=== PATIENT | male | born 1960 | race Caucasian/White ===

== ENCOUNTER 2020-05-01 11:36 | Observation (INO) ==
[2020-05-01] MEDS ORDERED: FUROSEMIDE 40 MG/4 ML VIAL IV STA (12:16)
--- NOTE | 2020-05-01 12:51 | Emergency Department Note ---
Impression & Plan CHF (congestive heart failure), New onset type 2 diabetes mellitus, HTN (hypertension) ED Provider Note NAME: RASHMI LUNA AGE: 59 SEX: M : 1960 ARRIVES VIA: Walk-In INFORMANT: Patient, , PCP records reviewed ED PROVIDER(S): Marcelo Zaragoza MD CHIEF COMPLAINT: Shortness of breath HPI: This 59-year-old male who went to his primary care physician's office yesterday over concerns that he was extremely short of breath. The patient feels he is filling up with fluid. He reports he can only sit upright to catch his breath. He reports he has never seen a doctor before until yesterday when he went to his [facility] primary care physician. Laboratory work was obtained there and the patient was sent in for an elevated D-dimer as well as BNP. Patient reports any type of exertion makes his shortness of breath worse. He reports rest makes it better. He has not taken any medications and does not take any medications. ROS: See above HPI for pertinent positives & negatives. A total of 10 systems reviewed and were otherwise negative. PAST MEDICAL HISTORY: See Below PAST SURGICAL HISTORY: See Below FAMILY HISTORY: See Below SOCIAL HISTORY: See Below HOME MEDICATIONS: See Below ALLERGIES: See Below VITALS: See Below PHYSICAL EXAMINATION: VITAL SIGNS - Vital signs and nursing notes were reviewed. GENERAL - 59-year-old male appearing stated age who is in moderate distress. Appears winded on physical examination. SKIN - Without rashes. HEAD - NC/AT. EYES - PERRL with EOMI bilaterally. Sclera anicteric. Palpebral conjunctiva pink and moist with no injection noted. EARS - No deformities of external structures noted on gross examination bilaterally. NOSE - Midline and without cyanosis. No epistaxis or purulent drainage noted. Septum midline without deviation or septal hematoma noted. MOUTH/OROPHARYNX - Without perioral cyanosis. Buccal mucosa pink and moist and without leukoplakia. Tongue midline with equal elevation of palate bilaterally. No tonsillar hypertrophy, erythema, or exudates noted. dentition noted. NECK - Neck with FROM. Supple to palpation. lymphadenopathy noted. No nuchal rigidity. LUNGS - Chest wall symmetric without accessory muscle use, intercostals retractions, or central cyanosis. Normal vesicular breath sounds CTA B/L. No wheezes, rales, or rhonchi appreciated. CARDIAC - RRR with S1/S2. No murmur, rubs, or gallops appreciated. ABDOMEN - Abdominal contour without pulsations or visible masses. BS normoactive all four quadrants. No tenderness, palpable masses, hepatosplenomegaly, or ascites noted. EXTREMITIES - +2 pitting edema bilaterally NEUROLOGIC - Cranial nerves II through XII grossly intact. Sensory intact to light touch throughout. Patellar reflexes +2/4. PSYCH - A&Ox3 and cooperates fully with examiner. Pt is very pleasant and interacts well with examiner. MEDICAL DECISION MAKING: Patient was seen and evaluated as above in room A11B. Review was performed of nursing notes and vital signs. I did review pertinent previous visits and patient history. After obtaining a thorough history and physical examination the above work up was performed. This 59-year-old male who presents to the emergency department and what appears to be acute congestive heart failure. This is evident on his chest x-ray as well as laboratory work which shows an elevation in his BNP. Because patient had an outpatient positive D-dimer he was sent for a CAT scan of the chest. This did not show any evidence of PE. Patient was started on IV Lasix here in the emergency department. Because of the new diagnosis I did discuss the case with the hospitalist service who did agree to meet the patient. An order was placed for continuous cardiac monitoring. The monitor shows a rate of 122 with Sinus tachycardia rhythm. The patient was evaluated during a period of high volume and high acuity during the global COVID-19 pandemic, and that diagnosis was suspected/considered upon their initial presentation. Their evaluation, treatment and testing was consistent with current guidelines for patients who present with complaints or symptoms that may be related to COVID-19. Patient was seen while provider was wearing PPE. Triage Nursing notes reviewed. Prior medical records reviewed Vital Signs: reviewed and remarkable for no significant abnormalities Differential diagnosis: Cardiac ischemia, aortic dissection, pulmonary embolism, pneumothorax, pneumonia, pericarditis, myocarditis, esophageal rupture, GERD, cholecystitis, pancreatitis, musculoskeletal, as well as other pathologies. ER treatment provided: See below Diagnostics interpreted by me: ECG: EKG shows a sinus tachycardia with occasional PVC no ST elevation or depression no previous EKG available. QTC is 482 ventricular rate is 108 Laboratory studies: As stated above and show below. Imaging studies: [facility], [place] [phone] XRay Report Patient: RASHMI LUNA Admit Date: 05/01/20 MR#: [id number] Address1: [address] [facility] [facility] [address] Acct ID:[id number] Address2: Date: 1960 [facility] Zip: [place] [address] Age: 59 Location: ED Sex: M Room/Bed: Att Phy: Diagnosis: ABNORMAL LABS, FLUID RETENTION [place] Phy: PCP,NO Service Date: 05/01/20 Fam Phy: Interpreting Phy: Wesley David Admit Phy: Ordering Phy: Marcelo Zaragoza MD cc: ~ XR chest 1V portable HISTORY: 59 years-old Male Chest Pain acute atypical chest pain COMPARISON: None TECHNIQUE: Portable AP view of the chest FINDINGS: Cardiomegaly. Pulmonary vascular congestion with mild interstitial coarsening. Small pleural effusions with mild bibasilar opacities. No pneumothorax. Bones appear grossly intact. IMPRESSION: 1. Cardiomegaly with pulmonary vascular congestion. 2. Small pleural effusions with mild bibasilar opacities suggestive of atelectasis versus pneumonitis. ACT 112: Negative or not required by law. The above report was generated using voice recognition software. It may contain grammatical, syntax or spelling errors. Electronically signed by: Claus David M.D. 05/01/2020 1:03 PM Dictated: 05/01/20 1302 Transcribed: 05/01/20 1302 [facility], [phone] CT Scan Report Patient: RASHMI LUNAAdmit Date: 05/01/20MR#: [id number]: [address] [facility]:[id number]: Date: [address] [place] [address] Zip: [place] [address]Zgb: 59Location: EDSex: MRoom/Bed:Att Phy:Diagnosis: ABNORMAL LABS, FLUID RETENTIONPri Phy: PCP,NOService Date: 05/01/20Fam Phy:Interpreting Phy: Wesley DavidAdmit Phy: Ordering Phy: Marcelo Zaragoza MD cc: ~ CT angio chest PE protocol CT DOSE: 1931.48 mGycm HISTORY: 59 years-old Male with PE. Acute shortness of breath with chest pain TECHNIQUE: Multiple CTA images of the chest were obtained after the intravenous administration of 119 ml Optiray 320. Coronal and sagittal MIPS were obtained from the axial data set and were submitted for review. All measurements were obtained according to NASCET criteria. A dose lowering technique was utilized adhering to the principles of ALARA. COMPARISON: CT abdomen and pelvis of same day FINDINGS: CTA: Moderate cardiomegaly. No pericardial effusion. Extensive coronary artery calcifications. No thoracic aortic aneurysm or dissection. The opacified pulmonary artery is unremarkable without evidence of pulmonary emboli. Subsegmental branches are not well evaluated secondary to contrast bolus during. CT CHEST: Enlarged heterogeneous thyroid. No adenopathy. Small left and moderate right pleural effusions. No pneumothorax. Intralobular septal thickening. Respiratory motion artifact limits evaluation of the lung parenchyma. Bibasilar consolidation, right greater than left. Central airways are patent. No pneumoperitoneum. Small volume of upper abdominal ascites. Generalized body wall edema. No acute fracture or suspicious bone lesion. IMPRESSION: 1. Cardiomegaly with pulmonary edema, small left and moderate right pleural effusions with small volume of abdominal ascites. 2. No pulmonary emboli. 3. Asymmetric right lung base consolidation suggests atelectasis versus pneum onia. 4. No adenopathy. ACT 112: Negative or not required by law. The above report was generated using voice recognition software. It may contain grammatical, syntax or spelling errors. Electronically signed by: Claus David M.D. 05/01/2020 3:01 PM Dictated: 05/01/20 1452Transcribed: 05/01/20 [facility], [phone] CT Scan Report Patient: RASHMI LUNAAdmit Date: 05/01/20#: [id number]: [address] [facility] ID:[id number]: [facility] Zip: [place] [address]Bao: 59Location: EDSex: MRoom/Bed:Att Phy:Diagnosis: ABNORMAL LABS, FLUID RETENTIONPri Phy: Seferino Quinonez, MDService Date: 05/01/20Fam Phy:Interpreting Phy: Darnell Acosta MDAdmit Phy: Ordering Phy: Marcelo Zaragoza MD cc: ~ CT OF THE ABDOMEN AND PELVIS WITH CONTRAST CLINICAL HISTORY: Abdominal distention. COMPARISON STUDY: None. TECHNIQUE: Following IV administration of 119 mL of Optiray-320, axial images of the abdomen and pelvis were obtained from the lung bases to the proximal femurs. Images were reviewed in the axial, sagittal, and coronal planes. IV contrast was administered without complication. Automated exposure control was utilized for the study. A dose lowering technique was utilized adhering to the principles of ALARA. FINDINGS: Please note that the chest CT will be reported separately. Moderate cardiomegaly with bilateral pleural effusions, right larger left, are better depicted on that exam. A small amount of perihepatic ascites is noted. There is trace perisplenic ascites. A small amount of ascites within the remainder of the abdomen is noted. There is body wall edema. Evaluation of the abdomen and pelvis is compromised by body wall contacting the gantry. There is colonic and moderate artifact. No hepatic lesions are identified. There is no biliary or pancreatic ductal dilatation. There is a splenule. The adrenal glands, kidneys and pancreas are grossly unremarkable. There is no hydronephrosis. No peripancreatic or pericholecystic infiltration is present. The appendix is normal. There is no evidence for a bowel obstruction. Mild bladder wall thickening is noted. Fat-containing bilateral inguinal hernias are present. There is a slightly enlarged left external iliac lymph node which measures 1 cm short axis diameter. Additional prominent pelvic lymph nodes are present.. No pneumatosis, free air or portal venous gas is present. Note is made of colonic diverticulosis without evidence for acute diverticulitis. IMPRESSION: 1. Evidence for volume overload with bilateral pleural effusions, body wall edema and a small amount of ascites. 2. Again compromised by artifact, as described above. No bowel obstruction. Normal appendix. 3. Colonic diverticulosis without evidence for acute diverticulitis. 4. Bladder wall thickening which could be correlated with urinalysis. 5. Slightly enlarged left external iliac lymph node. Several additional prominent pelvic lymph nodes. These nodes are indeterminate although probably benign. ACT 112: Negative or not required by law. Electronically signed by: Darnell Acosta M.D. 05/01/2020 3:15 PM Dictated: 05/01/20 1457Transcribed: 05/01/20 1457 Consultation(s): [none] ED COURSE: Procedures: [none] [PDMP:reviewed and no issues] [Critical Care:] [None] Past Med/Surg History Social History Smoking Status: Never smoker Second Hand Exposure: No; Do You Dip or Chew Tobacco: No; Hx Alcohol Use: Yes Hx Substance Use: No Preferred Language: Ivorian Communication Ability: Effective Supervisor Network Control Operators Required: No Beliefs That Will Affect Care: None Current Living Situation: Spouse Feels Safe at Home: Yes Safety Concerns: Feels Safe At This Time Assistive Devices: None Assistive Devices Comment: glasses for driving only Allergies Allergies Allergy/AdvReac Type Severity Reaction Status Date / Time No Known Allergies Allergy Unverified 05/01/20 12:47 Home Meds Home Medications Medication Instructions Recorded Confirmed One-A-Day Men's 50 Plus 1 tab PO QAM 05/01/20 05/01/20 Previous Rx's Medication Instructions Recorded cephalexin 500 mg PO Q6H #20 cap 05/05/20 furosemide 40 mg PO BID17 #60 tab 05/05/20 lisinopril 20 mg PO QAM #30 tab 05/05/20 metoprolol succinate 25 mg PO QAM #30 tab 05/05/20 potassium chloride 20 meq PO DAILY #30 tab 05/05/20 Results & Data (ED) Vital Signs Vital Signs - 24 hr 05/01/20 11:38 05/01/20 12:47 Temperature 36.4 C L Temperature Source Temporal Artery Scan Pulse Rate 122 H Respiratory Rate 22 Respiratory Effort / Characteristics Non-Labored Spontaneous Respiratory Depth Normal Blood Pressure 155/98 H Blood Pressure Mean 117 Pulse Oximetry 91 95 Oxygen Delivery Method Room Air Room Air Sepsis Recent Fever Within 48 Hours No Sepsis New/Unexplained Change in Mental Status N/A Sepsis Action Taken by Nursing No Action Required Laboratory Data Result diagrams: 05/05/20 06:44 05/05/20 08:07 Lab Results 05/01/20 05/01/20 05/01/20 Range/Units 12:30 12:30 12:30 WBC 7.57 (4.8-10.8) K/uL RBC 5.56 (4.7-6.1) M/uL Hgb 15.0 (14.0-18.0) g/dL Hct 48.0 (42-52) % MCV 86.3 (80-100) fL MCH 27.0 (25-34) pg MCHC 31.3 L (32-36) g/dL RDW Std Deviation 47.9 H (36.4-46.3) fL RDW Coeff of Abhijit 15.3 H (11.5-14.5) % Plt Count 204 (130-400) K/uL MPV 10.8 H (7.4-10.4) fL Immature Gran % (Auto) 0.1 % Neut % (Auto) 72.7 % Lymph % (Auto) 15.3 % Sharp % (Auto) 10.3 % Eos % (Auto) 1.3 % Baso % (Auto) 0.3 % Neut # (Auto) 5.50 (1.4-6.5) K/uL Lymph # (Auto) 1.16 L (1.2-3.4) K/uL Sharp # (Auto) 0.78 H (0.11-0.59) K/uL Eos # (Auto) 0.10 (0-0.5) K/uL Baso # (Auto) 0.02 (0-0.2) K/uL Immature Gran # (Auto) 0.01 (0.00-0.02) K/uL PT 13.5 H (9.0-12.0) Seconds INR 1.4 H (0.9-1.1) APTT 24.8 (21.0-31.0) Seconds PTT Ratio 0.9 Sodium 142 (136-145) mmol/L Potassium 3.9 (3.5-5.1) mmol/L Chloride 110 H (98-107) mmol/L Carbon Dioxide 30 (21-32) mmol/L Anion Gap 2.0 L (3-11) BUN 23 H (7-18) mg/dl Creatinine 0.93 (0.6-1.4) mg/dl Est Cr Clr Drug Dosing 132.7 ml/min Est GFR ( Amer) 104.5 Est GFR (Non-Af Amer) 90.2 BUN/Creatinine Ratio 24.5 H (10-20) Glucose 116 H (70-99) mg/dl Calcium 9.0 (8.5-10.1) mg/dl Total Bilirubin 0.7 (0.2-1) mg/dl AST 22 (15-37) U/L ALT 24 (12-78) U/L Alkaline Phosphatase 57 (45-117) U/L Total Creatine Kinase 105 (39-308) U/L CK-MB (CK-2) 2.2 (0.5-3.6) ng/ml CK/CKMB % Calc 2.1 (0-3.0) Troponin I < 0.015 (0-0.045) ng/ml NT-Pro-B Natriuret Pep 2163 H (0-900) pg/ml Total Protein 8.0 (6.4-8.2) gm/dl Albumin 3.7 (3.4-5.0) gm/dl Globulin 4.3 H (2.5-4.0) gm/dl Albumin/Globulin Ratio 0.9 (0.9-2) Lipase 118 (73-393) U/L COVID-19 Eval Order SARS-CoV-2 (PCR) (Negative) Influenza Type A (PCR) (Neg) Influenza Type B (PCR) (Neg) RSV (RT-PCR) (Neg) 05/01/20 05/01/20 Range/Units 12:34 12:34 WBC (4.8-10.8) K/uL RBC (4.7-6.1) M/uL Hgb (14.0-18.0) g/dL Hct (42-52) % MCV (80-100) fL MCH (25-34) pg MCHC (32-36) g/dL RDW Std Deviation (36.4-46.3) fL RDW Coeff of Abhijit (11.5-14.5) % Plt Count (130-400) K/uL MPV (7.4-10.4) fL Immature Gran % (Auto) % Neut % (Auto) % Lymph % (Auto) % Sharp % (Auto) % Eos % (Auto) % Baso % (Auto) % Neut # (Auto) (1.4-6.5) K/uL Lymph # (Auto) (1.2-3.4) K/uL Sharp # (Auto) (0.11-0.59) K/uL Eos # (Auto) (0-0.5) K/uL Baso # (Auto) (0-0.2) K/uL Immature Gran # (Auto) (0.00-0.02) K/uL PT (9.0-12.0) Seconds INR (0.9-1.1) APTT (21.0-31.0) Seconds PTT Ratio Sodium (136-145) mmol/L Potassium (3.5-5.1) mmol/L Chloride (98-107) mmol/L Carbon Dioxide (21-32) mmol/L Anion Gap (3-11) BUN (7-18) mg/dl Creatinine (0.6-1.4) mg/dl Est Cr Clr Drug Dosing ml/min Est GFR ( Amer) Est GFR (Non-Af Amer) BUN/Creatinine Ratio (10-20) Glucose (70-99) mg/dl Calcium (8.5-10.1) mg/dl Total Bilirubin (0.2-1) mg/dl AST (15-37) U/L ALT (12-78) U/L Alkaline Phosphatase (45-117) U/L Total Creatine Kinase (39-308) U/L CK-MB (CK-2) (0.5-3.6) ng/ml CK/CKMB % Calc (0-3.0) Troponin I (0-0.045) ng/ml NT-Pro-B Natriuret Pep (0-900) pg/ml Total Protein (6.4-8.2) gm/dl Albumin (3.4-5.0) gm/dl Globulin (2.5-4.0) gm/dl Albumin/Globulin Ratio (0.9-2) Lipase (73-393) U/L COVID-19 Eval Order [facility]Rsv at [facility] SARS-CoV-2 (PCR) NEGATIVE (Negative) Influenza Type A (PCR) Negative (Neg) Influenza Type B (PCR) Negative (Neg) RSV (RT-PCR) Negative (Neg) Administered Medications Discontinued Medications Acetaminophen (Acetaminophen 325 Mg Tab) 650 mg PO Q4H PRN PRN Reason: Moderate Pain Stop: 05/31/20 17:18 Last Admin: 05/02/20 19:52 Dose: 650 mg Documented by: [id number] Furosemide (Furosemide 40 Mg/4 Ml Vial) 40 mg IV NOW STA Stop: 05/01/20 12:17 Last Admin: 05/01/20 12:48 Dose: 40 mg Documented by: [id number] Heparin Sodium (Porcine) (Heparin Sod 5,000 Unit/0.5 Ml Vial) 5,000 units SQ Q8 COOPER Stop: 05/31/20 19:14 Last Admin: 05/05/20 13:46 Dose: 5,000 units Documented by: [id number] Admin: 05/05/20 06:13 Dose: 5,000 units Documented by: [id number] Admin: 05/04/20 22:21 Dose: 5,000 units Documented by: [id number] Admin: 05/04/20 15:13 Dose: Not Given Documented by: [id number] Admin: 05/04/20 05:07 Dose: 5,000 units Documented by: [id number] Admin: 05/03/20 22:22 Dose: 5,000 units Documented by: [id number] Admin: 05/03/20 12:43 Dose: Not Given Documented by: [id number] Admin: 05/03/20 05:38 Dose: 5,000 units Documented by: [id number] Admin: 05/02/20 21:17 Dose: 5,000 units Documented by: [id number] Admin: 05/02/20 14:13 Dose: 5,000 units Documented by: [id number] Admin: 05/02/20 05:33 Dose: 5,000 units Documented by: [id number] Admin: 05/02/20 01:23 Dose: Not Given Documented by: [id number] Admin: 05/01/20 21:06 Dose: 5,000 units Documented by: [id number] Cefazolin Sodium (Ancef 2000mg) 2,000 mg in 15 mls @ 3.75 mls/min IV Q8H COOPER Stop: 05/08/20 20:59 Last Admin: 05/05/20 13:46 Dose: 3.75 mls/min Documented by: [id number] Admin: 05/05/20 06:13 Dose: 3.75 mls/min Documented by: [id number] Admin: 05/04/20 20:22 Dose: 3.75 mls/min Documented by: [id number] Admin: 05/04/20 11:55 Dose: 3.75 mls/min Documented by: [id number] Admin: 05/04/20 05:07 Dose: 3.75 mls/min Documented by: [id number] Admin: 05/03/20 20:20 Dose: 3.75 mls/min Documented by: [id number] Admin: 05/03/20 12:42 Dose: 3.75 mls/min Documented by: [id number] Admin: 05/03/20 05:36 Dose: 3.75 mls/min Documented by: [id number] Admin: 05/02/20 21:14 Dose: 3.75 mls/min Documented by: [id number] Admin: 05/02/20 12:59 Dose: 3.75 mls/min Documented by: [id number] Admin: 05/02/20 05:32 Dose: 3.75 mls/min Documented by: [id number] Admin: 05/01/20 21:06 Dose: 3.75 mls/min Documented by: [id number] Furosemide 40 mg/ Syringe 4 mls @ 4 mls/min IV Q12H COOPER Stop: 06/01/20 05:59 Last Admin: 05/05/20 06:13 Dose: 4 mls/min Documented by: [id number] Admin: 05/04/20 18:02 Dose: 4 mls/min Documented by: [id number] Admin: 05/04/20 05:07 Dose: 4 mls/min Documented by: [id number] Admin: 05/03/20 18:06 Dose: 4 mls/min Documented by: [id number] Admin: 05/03/20 05:37 Dose: 4 mls/min Documented by: [id number] Admin: 05/02/20 17:38 Dose: 4 mls/min Documented by: [id number] Admin: 05/02/20 05:31 Dose: 4 mls/min Documented by: [id number] Insulin Aspart (Insulin Aspart 100 Units/Ml 3 Ml Pen) 0 units SC ACHS COOPER Stop: 05/31/20 17:18 Last Admin: 05/05/20 11:25 Dose: Not Given Documented by: [id number] Cosigned by: [id number] Admin: 05/05/20 08:29 Dose: Not Given Documented by: [id number] Cosigned by: [id number] Admin: 05/04/20 21:15 Dose: Not Given Documented by: [id number] Cosigned by: [id number] Admin: 05/04/20 16:42 Dose: Not Given Documented by: [id number] Cosigned by: [id number] Admin: 05/04/20 12:19 Dose: Not Given Documented by: [id number] Cosigned by: [id number] Admin: 05/04/20 08:14 Dose: Not Given Documented by: [id number] Admin: 05/03/20 20:26 Dose: Not Given Documented by: [id number] Cosigned by: [id number] Admin: 05/03/20 16:55 Dose: Not Given Documented by: [id number] Admin: 05/03/20 11:59 Dose: Not Given Documented by: [id number] Admin: 05/03/20 08:01 Dose: Not Given Documented by: [id number] Cosigned by: [id number] Admin: 05/02/20 21:17 Dose: Not Given Documented by: [id number] Cosigned by: [id number] Admin: 05/02/20 16:29 Dose: Not Given Documented by: [id number] Cosigned by: [id number] Admin: 05/02/20 12:36 Dose: Not Given Documented by: [id number] Cosigned by: [id number] Admin: 05/02/20 09:30 Dose: Not Given Documented by: [id number] Cosigned by: [id number] Admin: 05/01/20 21:05 Dose: Not Given Documented by: [id number] Cosigned by: [id number] Admin: 05/01/20 17:56 Dose: Not Given Documented by: [id number] Cosigned by: [id number] Ioversol (Optiray 320 125ml) 119 ml IV ONCE ONE Stop: 05/01/20 14:45 Last Admin: 05/01/20 14:44 Dose: 119 ml Documented by: [id number] Lisinopril (L[facility]opril 10 Mg Tab) [facility] Stop: 06/02/20 11:59 Last Admin: 05/04/20 08:15 Dose: 10 mg Documented by: [id number] Admin: 05/03/20 12:42 Dose: 10 mg Documented by: [id number] Lisinopril (Lisinopril 20 Mg Tab) [facility] Stop: 06/04/20 08:59 Last Admin: 05/05/20 08:20 Dose: 20 mg Documented by: [id number] Metoprolol Succinate (Metoprolol Succ 25mg Ext Rel Tab) [facility] Stop: 06/03/20 08:59 Last Admin: 05/05/20 08:20 Dose: 25 mg Documented by: [id number] Admin: 05/04/20 08:15 Dose: 25 mg Documented by: [id number] Multivitamins/Minerals (Cerovite Adv Formula Tab) 1 tab PO QAM [facility] Stop: 06/01/20 08:59 Last Admin: 05/05/20 08:19 Dose: 1 tab Documented by: [id number] Admin: 05/04/20 08:15 Dose: 1 tab Documented by: [id number] Admin: 05/03/20 08:23 Dose: 1 tab Documented by: [id number] Admin: 05/02/20 08:23 Dose: 1 tab Documented by: [id number] Nitroglycerin (Nitroglycerin 2% Ointment 30gm Tube) 0.5 inch EXT Q6H [facility] Stop: 05/31/20 20:59 Last Admin: 05/02/20 08:23 Dose: 0.5 inch Documented by: [id number] Admin: 05/02/20 03:34 Dose: 0.5 inch Documented by: [id number] Admin: 05/01/20 22:16 Dose: 0.5 inch Documented by: [id number] Discharge Plan Visit Data Chief Complaint: Abnormal Labs/Diagnostic Testing Stated Complaint: ABNORMAL LABS, FLUID RETENTION ED Provider: Marcelo Zaragoza Discharge Problem: CHF (congestive heart failure), New onset type 2 diabetes mellitus, HTN (hypertension) Patient Disposition: Admitted As Inpatient Discharge Instructions Interventions: ED Discharge Assessment Last Done: 05/01/20 16:57 Discharge Problem: CHF (congestive heart failure) Qualifiers: Heart failure type: unspecified Heart failure chronicity: unspecified Qualified Code(s): I50.9 - Heart failure, unspecified HTN (hypertension) Qualifiers: Hypertension type: unspecified Qualified Code(s): I10 - Essential (primary) hypertension
[2020-05-01 12:53] LABS: Basophils # (auto) 0.02 K/uL (0-0.2); Basophils % (auto) 0.3 %; Eosinophils % (auto) 1.3 %; Immature Granulocytes # (auto) 0.01 K/uL (0.00-0.02); Immature Granulocytes % (auto) 0.1 %; Lymphocytes # (auto) 1.16 K/uL (1.2-3.4); Lymphocytes % (auto) 15.3 %; Mean Corpuscular Hgb Conc 31.3 g/dL (32-36); Mean Corpuscular Volume 86.3 fL (80-100); Mean Platelet Volume 10.8 fL (7.4-10.4); Monocytes # (auto) 0.78 K/uL (0.11-0.59); Monocytes % (auto) 10.3 %; Neutrophils % (auto) 72.7 %; Platelet Count 204 K/uL (130-400); RDW Coefficient of Variation 15.3 % (11.5-14.5); RDW Standard Deviation 47.9 fL (36.4-46.3); Red Blood Count 5.56 M/uL (4.7-6.1); White Blood Count 7.57 K/uL (4.8-10.8)
[2020-05-01 12:54] LABS: INR 1.4 (0.9-1.1); Partial Thromboplastin Ratio 0.9; Partial Thromboplastin Time 24.8 Seconds (21.0-31.0); Prothrombin Time 13.5 Seconds (9.0-12.0)
[2020-05-01 12:59] LABS: Alanine Aminotransferase 24 U/L (12-78); Albumin Level 3.7 gm/dl (3.4-5.0); Aspartate Aminotransferase 22 U/L (15-37); BUN Creatinine Ratio 24.5 (10-20); Blood Urea Nitrogen 23 mg/dl (7-18); Carbon Dioxide 30 mmol/L (21-32); Chloride 110 mmol/L (98-107); Creatinine Clr Calc Pharmacy 132.7 ml/min; Est GFR (African American) 104.5; Est GFR (Non-African American) 90.2; Glucose 116 mg/dl (70-99); Lipase 118 U/L (73-393); Potassium 3.9 mmol/L (3.5-5.1); Sodium 142 mmol/L (136-145)
--- NOTE | 2020-05-01 13:04 | XRay Report ---
XR chest 1V portable HISTORY: 59 years-old Male Chest Pain acute atypical chest pain COMPARISON: None TECHNIQUE: Portable AP view of the chest FINDINGS: Cardiomegaly. Pulmonary vascular congestion with mild interstitial coarsening. Small pleural effusion s with mild bibasilar opacities. No pneumothorax. Bones appear grossly intact. IMPRESSION: 1. Cardiomegaly with pulmonary vascular congestion. 2. Small pleural effusions with mild bibasilar opacities suggestive of atelectasis versus pneumonitis . ACT 112: Negative or not required by law. The above report was generated using voice recognition software. It may contain grammatical, syntax o r spelling errors. Electronically signed by: Claus David M.D. 05/01/2020 1:03 PM
[2020-05-01 13:08] LABS: Albumin Globulin Ratio 0.9 (0.9-2); Alkaline Phosphatase 57 U/L (45-117); Bilirubin,Total 0.7 mg/dl (0.2-1); Creatine Kinase 105 U/L (39-308); Creatine Kinase MB 2.2 ng/ml (0.5-3.6); Globulin 4.3 gm/dl (2.5-4.0); NT Pro B Type Natriuretic Pept 2163 pg/ml (0-900); Troponin I < 0.015 ng/ml (0-0.045)
[2020-05-01 13:39] LABS: Influenza A virus by PCR Negative (Neg); Influenza B virus by PCR Negative (Neg); RSV by PCR Negative (Neg); SARS CoV2 RNA(COVID-19) InHosp NEGATIVE (Negative)
[2020-05-01] MEDS ORDERED: OPTIRAY 320 125ml IV ONE (14:44)
--- NOTE | 2020-05-01 15:02 | CT Scan Report ---
CT angio chest PE protocol CT DOSE: 1931.48 mGycm HISTORY: 59 years-old Male with PE. Acute shortness of breath with chest pain TECHNIQUE: Multiple CTA images of the chest were obtained after the intravenous administration of 119 ml Optiray 320. Coronal and sagittal MIPS were obtained from the axial data set and were submitted for review. All measurements were obtained according to NASCET criteria. A dose lowering technique w as utilized adhering to the principles of ALARA. COMPARISON: CT abdomen and pelvis of same day FINDINGS: CTA: Moderate cardiomegaly. No pericardial effusion. Extensive coronary artery calcifications. No thoracic aortic aneurysm or dissection. The opacified pulmonary artery is unremarkable without evidence of pu lmonary emboli. Subsegmental branches are not well evaluated secondary to contrast bolus during. CT CHEST: Enlarged heterogeneous thyroid. No adenopathy. Small left and moderate right pleural effusions. No pn eumothorax. Intralobular septal thickening. Respiratory motion artifact limits evaluation of the lung parenchyma. Bibasilar consolidation, right greater than left. Central airways are patent. No pneumoperitoneum. Small volume of upper abdominal ascites. Generalized body wall edema. No acute f racture or suspicious bone lesion. IMPRESSION: 1. Cardiomegaly with pulmonary edema, small left and moderate right pleural effusions with small volu me of abdominal ascites. 2. No pulmonary emboli. 3. Asymmetric right lung base consolidation suggests atelectasis versus pneumonia. 4. No adenopathy. ACT 112: Negative or not required by law. The above report was generated using voice recognition software. It may contain grammatical, syntax o r spelling errors. Electronically signed by: Claus David M.D. 05/01/2020 3:01 PM
--- NOTE | 2020-05-01 15:17 | CT Scan Report ---
CT OF THE ABDOMEN AND PELVIS WITH CONTRAST CLINICAL HISTORY: Abdominal distention. COMPARISON STUDY: None. TECHNIQUE: Following IV administration of 119 mL of Optiray-320, axial images of the abdomen and pelv is were obtained from the lung bases to the proximal femurs. Images were reviewed in the axial, sagit graciela, and coronal planes. IV contrast was administered without complication. Automated exposure contr ol was utilized for the study. A dose lowering technique was utilized adhering to the principles of ALARA. FINDINGS: Please note that the chest CT will be reported separately. Moderate cardiomegaly with bilateral pleur al effusions, right larger left, are better depicted on that exam. A small amount of perihepatic asci wu is noted. There is trace perisplenic ascites. A small amount of ascites within the remainder of t he abdomen is noted. There is body wall edema. Evaluation of the abdomen and pelvis is compromised by body wall contacting the gantry. There is colonic and moderate artifact. No hepatic lesions are iden tified. There is no biliary or pancreatic ductal dilatation. There is a splenule. The adrenal glands, kidneys and pancreas are grossly unremarkable. There is no hydronephrosis. No peripancreatic or neeru cholecystic infiltration is present. The appendix is normal. There is no evidence for a bowel obstruc tion. Mild bladder wall thickening is noted. Fat-containing bilateral inguinal hernias are present. T here is a slightly enlarged left external iliac lymph node which measures 1 cm short axis diameter. A dditional prominent pelvic lymph nodes are present.. No pneumatosis, free air or portal venous gas is present. Note is made of colonic diverticulosis without evidence for acute diverticulitis. IMPRESSION: 1. Evidence for volume overload with bilateral pleural effusions, body wall edema and a small amount of ascites. 2. Again compromised by artifact, as described above. No bowel obstruction. Normal appendix. 3. Colonic diverticulosis without evidence for acute diverticulitis. 4. Bladder wall thickening which could be correlated with urinalysis. 5. Slightly enlarged left external iliac lymph node. Several additional prominent pelvic lymph nodes. These nodes are indeterminate although probably benign. ACT 112: Negative or not required by law. Electronically signed by: Darnell Acosta M.D. 05/01/2020 3:15 PM
--- NOTE | 2020-05-01 15:35 | History & Physical Report ---
Date of Service May 01, 2020 Assessment & Plan (1) Shortness of breath: -Admit to tele -suspect this is secondary to decompensated heart failure -COVID-19 negative -Lasix 40 mg IV BID -BNP elevated on admission 2163 -D-dimer elevated on admission however CT of the chest negative for acute PE. 1. Cardiomegaly with pulmonary edema, small left and moderate right pleural effusions with small volume of abdominal ascites. 2. No pulmonary emboli. 3. Asymmetric right lung base consolidation suggests atelectasis versus pneumonia. -Afebrile, no leukocytosis to suggest infection, will check sputum culture if produces -BMP with am labs with aggressive diuresis -Flutter, incentive spirometry (2) CHF (congestive heart failure): -Suspected -2D echo stat -Cardiology consult -Heart healthy diet, fluid restriction of 1500 mL/day, strict I's and O's, place keith, will attempt to obtain infor regarding outs in the ER from nursing from administration of first lasix dose. -would benefit from CHF clinic as outpt if able to participate -Follow BMP with aggressive diuresis -EKG reviewed -CT chest reviewed as above showing small left and moderate right pleural effusions with abdominal ascites -troponin neg -Check am BNP -Check lipid panel with am labs (3) HTN (hypertension): -Elevated 156/108 on admission -Diet and exercise will need to be promoted during and after hospitalization -Likely will need Beta blockade and LEAH (4) New onset type 2 diabetes mellitus: -A1c of 6.5 as of 04/30/2020 -Diabetic consult as new diagnosis for the patient -ISS with accuchecks achs -Check UA for proteinuria, protein/Cr urine in am -Diet and exercise are appropriate at this time as outpt, counseled at bedside, after 3 mo trial can consider initiation of Metformin if no improvement with diet and exercise as an outpatient. (5) Morbid obesity with BMI of 45.0-49.9, adult: - Diet and exercise - HH diet, fluid restriction as above (6) DVT prophylaxis: - teds, scds, heparin subq CODE: Full Dispo: From home, likely to remain in the hospital x 1-2 days (7) Cellulitis of right lower extremity: (8) Acute CHF (congestive heart failure): History of Present Illness Primary Care Provider: Seferino Quinonez MD This is a 59-year-old male with limited PMHx including morbid obesity with BMI of 48.6, new onset DM type II, and hypertension. He has not seen a doctor in years until yesterday when he presented to Dr. Butcher office in [place], and saw the PA-C to establish care. He recently moved here from [place] with his . The patient presented due to worsening shortness of breath, swelling in legs and initial work-up was started which included CMP, BMP, TSH, ESR, CRP Lyme's testing (due to recent bite on his leg), A1c, EKG, and an echo was ordered after finding increased tachycardia and proBNP. He was referred to the ER for decompensated heart failure however the patient refused yesterday. He presented today as he did not feel any better, and because his brought him. Reports worsening ASHLEY x 1 month, and is only able to go about 10 feet before getting short of breath and needing to stop and rest. Reports his abdomen feels tight with fluid, denies abdominal pain, nausea, vomiting, diarrhea or constipation. Leg swelling has become more prominent recently, equal in both legs, and reports sometimes goes 1 week without wearing shoes at all. He also occasionally has a dry cough. Denies chest pain or palpitations. he does not know his weight, but reports going up a pant size within the past year, estimating that he has gained about 10 pounds. Reports his diet has been better than it ever has been as they are cooking everything at home, and not eating lots of junk food. Social Hx: Drinks alcohol socially, 2-3 drinks 2 times per month, occasional cigar, and denies other illicit drug use. He does not exercise at all, and edwin been working from home and some days does not need to even leave his house. Lives at home with his and pet dogs. Family history: Father: at age 91, CAD, HTN, CHF Mother: at age 92, Alzheimer's Brothers x 3 : Alive and well, possible cardiac disease, limited information available Allergies Allergy/AdvReac Type Severity Reaction Status Date / Time No Known Allergies Allergy Unverified 05/01/20 12:47 Home Medications Medication Instructions Recorded Confirmed Type [id number] K-lycop 1 tab PO QAM 05/01/20 05/01/20 History [One-A-Day Men's 50 Plus] Past Med/Surg History Social History Smoking Status: Never smoker Second Hand Exposure: No; Do You Dip or Chew Tobacco: No; Hx Alcohol Use: Yes Hx Substance Use: No Preferred Language: [place] Communication Ability: Effective Tank Hoop Bender Required: No Beliefs That Will Affect Care: None Current Living Situation: Spouse Feels Safe at Home: Yes Safety Concerns: Feels Safe At This Time Assistive Devices: Glasses Assistive Devices Comment: glasses for driving only Review of Systems Review of Systems: Constitutional: No fever, sweats or chills Eyes: No diplopia, no worsening or blurred vision ENT: normal hearing, no trouble swallowing Respiratory: +occasional dry cough, no sputum, dyspnea at rest, + dyspnea on exertion progressing. Does not wear supplemental O2 at baseline. Cardiovascular: No chest pain, tightness or palpitations Abdomen: As per HPI, + tight skin, +bloating/distension, No pain, nausea, vomiting, diarrhea or constipation Musculoskeletal: No joint pain, calf pain, + BLE swelling : nocturia, sometimes feels as if he has difficulty emptying bladder Neurologic: No weakness, numbness/tingling, or balance problems Psychiatric: No anxiety or depression Skin: No rash or itch Physical Exam Physical Exam: General: awake, alert, no apparent distress, morbid obesity, BMI 48.6 Head: Normocephalic, atraumatic ENT: PERRL, EOMI, no pharyngeal exudate, mucous membranes moist Chest: Clear to auscultation in upper lopez bilaterally, diminished breath sounds at bases bilaterally, on room air, no adventitious breath sounds Cardiac: Regular rate and rhythm, no murmur, +JVD, normal peripheral pulses, good capillary refill Abdominal: NABS x 4 quadrants, +tense, +distended, nontender to palpation, no rebound or guarding Extremities: +BLE edema 2+ pitting, +blanching erythema up to knee bilaterally, no open lesions or abrasions, calfs nontender to palpation Psych: Normal mood and affect Neuro: AAO x 3, strength intact bilaterally and rated 5/5, no motor deficits, speech is clear, no peripheral sensory deficits Results & Data Results & Data ([facility]) Vital Signs (Past 12 Hours) Vital Signs Temp Pulse Pulse Resp BP BP Pulse Ox 05/01/20 15:01 114 H 22 156/108 H 94 03/25/21 12:47 95 05/01/20 11:38 36.4 C L 122 H 22 155/[address] angio chest PE protocol CT DOSE: 1931.48 mGycm HISTORY: 59 years-old Male with PE. Acute shortness of breath with chest pain TECHNIQUE: Multiple CTA images of the chest were obtained after the intravenous administration of 119 ml Optiray 320. Coronal and sagittal MIPS were obtained from the axial data set and were submitted for review. All measurements were obtained according to NASCET criteria. A dose lowering technique was utilized adhering to the principles of ALARA. COMPARISON: CT abdomen and pelvis of same day FINDINGS: CTA: Moderate cardiomegaly. No pericardial effusion. Extensive coronary artery calcifications. No thoracic aortic aneurysm or dissection. The opacified pulmonary artery is unremarkable without evidence of pulmonary emboli. Subsegmental branches are not well evaluated secondary to contrast bolus during. CT CHEST: Enlarged heterogeneous thyroid. No adenopathy. Small left and moderate right pleural effusions. No pneumothorax. Intralobular septal thickening. Respiratory motion artifact limits evaluation of the lung parenchyma. Bibasilar consolidation, right greater than left. Central airways are patent. No pneumoperitoneum. Small volume of upper abdominal ascites. Generalized body wall edema. No acute fracture or suspicious bone lesion. IMPRESSION: 1. Cardiomegaly with pulmonary edema, small left and moderate right pleural effusions with small volume of abdominal ascites. 2. No pulmonary emboli. 3. Asymmetric right lung base consolidation suggests atelectasis versus pneumonia. 4. No adenopathy. XR chest 1V portable HISTORY: 59 years-old Male Chest Pain acute atypical chest pain COMPARISON: None TECHNIQUE: Portable AP view of the chest FINDINGS: Cardiomegaly. Pulmonary vascular congestion with mild interstitial coarsening. Small pleural effusions with mild bibasilar opacities. No pneumothorax. Bones appear grossly intact. IMPRESSION: 1. Cardiomegaly with pulmonary vascular congestion. 2. Small pleural effusions with mild bibasilar opacities suggestive of atelectasis versus pneumonitis. CT OF THE ABDOMEN AND PELVIS WITH CONTRAST CLINICAL HISTORY: Abdominal distention. COMPARISON STUDY: None. TECHNIQUE: Following IV administration of 119 mL of Optiray-320, axial images of the abdomen and pelvis were obtained from the lung bases to the proximal femurs. Images were reviewed in the axial, sagittal, and coronal planes. IV contrast was administered without complication. Automated exposure control was utilized for the study. A dose lowering technique was utilized adhering to the principles of ALARA. FINDINGS: Please note that the chest CT will be reported separately. Moderate cardiomegaly with bilateral pleural effusions, right larger left, are better depicted on that exam. A small amount of perihepatic ascites is noted. There is trace perisplenic ascites. A small amount of ascites within the remainder of the abdomen is noted. There is body wall edema. Evaluation of the abdomen and pelvis is compromised by body wall contacting the gantry. There is colonic and moderate artifact. No hepatic lesions are identified. There is no biliary or pancreatic ductal dilatation. There is a splenule. The adrenal glands, kidneys and pancreas are grossly unremarkable. There is no hydronephrosis. No peripancreatic or peric holecystic infiltration is present. The appendix is normal. There is no evidence for a bowel obstruction. Mild bladder wall thickening is noted. Fat-containing bilateral inguinal hernias are present. There is a slightly enlarged left external iliac lymph node which measures 1 cm short axis diameter. Additional prominent pelvic lymph nodes are present.. No pneumatosis, free air or portal venous gas is present. Note is made of colonic diverticulosis without evidence for acute diverticulitis. IMPRESSION: 1. Evidence for volume overload with bilateral pleural effusions, body wall edema and a small amount of ascites. 2. Again compromised by artifact, as described above. No bowel obstruction. Normal appendix. 3. Colonic diverticulosis without evidence for acute diverticulitis. 4. Bladder wall thickening which could be correlated with urinalysis. 5. Slightly enlarged left external iliac lymph node. Several additional prominent pelvic lymph nodes. These nodes are indeterminate although probably benign. ECG Additional Comments: 01-MAY-2020 12:29:29 [facility]-EDSTAT ROUTINE RETRIEVAL Sinus tachycardia with occasional Premature ventricular complexes Nonspecific ST abnormality Abnormal ECG No previous ECGs available 25mm/s 10mm/mV 150Hz 9.0.9 12SL 241 MANISHA: 10 Referred by: REFERRED SELF Unconfirmed Vent. rate 108 BPM SC interval 146 ms QRS duration 104 ms QT/QTc 360/482 ms Code Status & VTE Plan Code Status Full code- discussed with the patient at bedside Supervising Physician Co-Signing Physician Notes I have seen and examined the patient and have discussed the case with the provider above. I agree with the assessment and plan as stated with the following exceptions. Mr. Ann is a morbidly obese man with acute shortness of breath with exertion over the past 2-4 weeks. He recently screened positive for diabetes with a HbA1C of 6.5 and outpatient labwork reflects an elevated CRP of 11.94. He denies fevers or chills but does have asymmetrical erythema of his RLE and admits to LE swelling in the past. He doesn't take any medications regularly. He admits to significant abdominal and lower extremity swelling in the past couple of weeks and reports a sedentary lifestyle as a result of the COVID pandemic. ROS is negative for chest pain or respiratory symptoms. Physical exam reveals diminished breath sounds without wheezing, rales or crackles. Some increased respiratory effort with minimal exertion. Heart sounds are heard including S1 and S2 but are distant. Rate is tachy and regular. No murmurs. Abdomen is protuberant with edema, but nontender. There is 3-4+ pitting edema to his lower extremities bilaterally. Labwork reflects no leukocytosis, INR 1.4, BNP 2163, normal lipase, negative urine without proteinuria, and a negative covid test. Imaging reveals bilateral pleural effusions, no pulmonary embolism. He responded well to Lasix 40mg IV given in the ER although his initial output was not tracked. He is refusing a second dose of Lasix for today and is also refusing a Keith catheter. He has elevated BP and is tachycardic. Will add vasodilator therapy with nitro paste and continue Lasix to start at 0600. Started him on cefazolin out of concern for cellulitis. Does not appear septic at this time. Appreciate cardiology consultation. DO Enzo
--- NOTE | 2020-05-01 16:45 | Electrocardiogram Report ---
Test Reason : Blood Pressure : / mmHG Vent. Rate : 108 BPM Atrial Rate : 108 BPM P-R Int : 146 ms QRS Dur : 104 ms QT Int : 360 ms P-R-T Axes : 054 026 038 degrees QTc Int : 482 ms Sinus tachycardia with occasional Premature ventricular complexes Nonspecific ST abnormality Abnormal ECG No previous ECGs available Confirmed by Jet Hoff ([id number]) on 05/01/2020 4:44:38 PM Referred By: REFERRED SELF Confirmed By:Aquiles Hoff
[2020-05-01] MEDS ORDERED: GLUCOSE 10 TABS/TUBE PO PRN (17:19)
[2020-05-01] MEDS ORDERED: ONDANSETRON INJ 2 MG/ML 2 ML VIAL IV PRN (17:19)
[2020-05-01] MEDS ORDERED: CARBOHYDRATES FOR HYPOGLYCEMIA PO PRN (17:19)
[2020-05-01] MEDS ORDERED: GLUCOSE 40% GEL 15 GM TUBE PO PRN (17:19)
[2020-05-01] MEDS ORDERED: GLUCAGON FOR INJ 1 MG VIAL SQ PRN (17:19)
[2020-05-01] MEDS ORDERED: DEXTROSE 50% 50 ML SYRINGE IV PRN (17:19)
[2020-05-01] MEDS ORDERED: ACETAMINOPHEN 325 MG TAB PO PRN (17:19)
[2020-05-01] MEDS: INSULIN ASPART 100 UNITS/ML 3 ML PEN SC SCH ×2 (17:56→21:05)
[2020-05-01 18:40] LABS: Appearance Urine Clear (Clear); Bilirubin Urine Negative (Negative); Blood Urine Negative (Negative); Color Urine Yellow; Glucose Urine UA Negative (Negative); Ketones Urine Negative (Negative); Leukocyte Esterase Urine Negative (Negative); Nitrite Urine Negative (Negative); Protein Urine Negative (Negative); Specific Gravity Urine 1.021 (1.000-1.030); Urobilinogen Urine Negative (Negative)
[2020-05-01 19:00] LABS: Creatinine Urine Random 27.3 mg/dl; Total Protein Urine Random < 5.0 mg/dl (0-11.9)
[2020-05-01] MEDS ORDERED: FUROSEMIDE 40 MG/4 ML VIAL IV SCH (21:00)
[2020-05-01] MEDS ORDERED: HEPARIN SOD 5,000 UNIT/0.5 ML VIAL SQ SCH (21:00)
[2020-05-01] MEDS ORDERED: FUROSEMIDE 40 MG in SYRINGE 0 ML IV SCH (21:00)
[2020-05-01] MEDS: HEPARIN SOD 5,000 UNIT/0.5 ML VIAL SQ SCH (21:06)
[2020-05-01] MEDS: ceFAZolin 2000MG 2,000 MG/15 ML SYR IV SCH (21:06)
[2020-05-01] MEDS: NITROGLYCERIN 2% OINTMENT 30GM TUBE EXT SCH (22:16)
[2020-05-02] MEDS: HEPARIN SOD 5,000 UNIT/0.5 ML VIAL SQ SCH ×4 (01:23→21:17)
[2020-05-02] MEDS: NITROGLYCERIN 2% OINTMENT 30GM TUBE EXT SCH ×2 (03:34→08:23)
[2020-05-02] MEDS: FUROSEMIDE 40 MG in SYRINGE 0 ML IV SCH ×2 (05:31→17:38)
[2020-05-02] MEDS: ceFAZolin 2000MG 2,000 MG/15 ML SYR IV SCH ×3 (05:32→21:14)
[2020-05-02 06:16] LABS: Hematocrit (blood only) 46.3 % (42-52); Hemoglobin 14.8 g/dL (14.0-18.0); Mean Corpuscular Hemoglobin 27.3 pg (25-34); Mean Corpuscular Volume 85.3 fL (80-100); Mean Platelet Volume 10.7 fL (7.4-10.4); Platelet Count 218 K/uL (130-400); RDW Coefficient of Variation 15.3 % (11.5-14.5); RDW Standard Deviation 48.4 fL (36.4-46.3); Red Blood Count 5.43 M/uL (4.7-6.1)
[2020-05-02 06:50] LABS: BUN Creatinine Ratio 19.3 (10-20); Calcium 8.9 mg/dl (8.5-10.1); Creatinine Clr Calc Pharmacy 121.6 ml/min; Est GFR (African American) 86.3; Est GFR (Non-African American) 74.4; Magnesium 2.1 mg/dl (1.8-2.4); Potassium 3.8 mmol/L (3.5-5.1)
[2020-05-02 06:55] LABS: C Reactive Protein 1.31 mg/dl (0-0.29)
[2020-05-02] MEDS: CEROVITE ADV FORMULA TAB PO SCH (08:23)
--- NOTE | 2020-05-02 08:57 | Cardiology Consultation ---
Date of Consultation May 02, 2020 Assessment & Plan (1) Cellulitis of right lower extremity: Per medicine being covered by antibiotics (2) CHF (congestive heart failure): Diuretics will be continued for now. He has had a resting echocardiogram which I will review. For us this is the most important study, this is probably the most important study to understand his pathology. He will need to be started on guideline directed medications. (3) New onset type 2 diabetes mellitus: Treated by medicine and covered with insulin. (4) Morbid obesity with BMI of 45.0-49.9, adult: Suggested weight loss the patient as his weight is his most important health risk. (5) Sleep apnea: Believe the patient is likely to have sleep apnea. We will order a nocturnal pulse oximeter while he is in the hospital. History of Present Illness Attending Physician: Jewell Giraldo DO History of Present Illness This is a 59-year-old male patient who recently moved from [place] to the [facility]. Prior to this hospital admission he has had minimal health care for several years. He was admitted with progressive shortness of breath, increasing lower extremity edema and increasing abdominal girth. He essentially has been admitted with congestive heart failure and volume overload. He has no prior history of coronary artery disease. He denies myocardial infarction or cardiac angina. He has newly discovered diabetes this admission. No prior history of hypertension or hypercholesterolemia. He has morbid obesity. He has never been checked for sleep apnea. No recent exertional chest pain. No history of cardiac arrhythmias. Allergies Allergy/AdvReac Type Severity Reaction Status Date / Time No Known Allergies Allergy Unverified 05/01/20 12:47 Home Medications Medication Instructions Recorded Confirmed Type [id number] K-lycop 1 tab PO QAM 05/01/20 05/01/20 History [One-A-Day Men's 50 Plus] Patient History Social History Smoking Status: Never smoker Second Hand Exposure: No; Do You Dip or Chew Tobacco: No; Hx Alcohol Use: Yes Hx Substance Use: No Preferred Language: Frisian Communication Ability: Effective Transport Aide Required: No Beliefs That Will Affect Care: None Current Living Situation: Spouse Feels Safe at Home: Yes Safety Concerns: Feels Safe At This Time Assistive Devices: None Assistive Devices Comment: glasses for driving only Review of Systems Review of Systems: All systems reviewed & are unremarkable except as noted in HPI & below Nothing additional to add. Physical Exam Physical Exam: General: no acute distress and stated age, sitting in a chair and appears to be comfortable. Head: normocephalic, no masses, lesions, tenderness or abnormalities Eyes: conjunctiva are pink and non-injected, sclera clear Neck: supple, no adenopathy, no bruits, normal jugular venous pulse, no hepatojugular reflux Chest: normal shape and normal respiratory effort Lungs: clear to auscultation and percussion Cardiac Exam: - regular rate & rhythm, no murmurs gallops or rubs - normal S1, normal S2 Pulses: 2(+) throughout Abdomen: Obese, abdomen soft, non-tender, no abnormal masses and no hepatosplenomegaly Musculoskeletal: no gait disturbance, no joint inflammation, no deforming arthritis Extremities: Bilateral pitting edema to the knees bilaterally. Neuro: grossly normal exam Results & Data ([facility]) Vital Signs (Past 12 Hours) Vital Signs Temp Pulse Pulse Resp BP Pulse Ox 05/02/20 08:24 36.8 C 109 H 17 136/94 91 05/02/20 04:07 36.4 C L 100 H 20 121/74 90 05/01/20 23:36 97 H 05/01/20 22:56 36.7 C 101 H 19 126/80 90 Laboratory Results Laboratory Results - last 24 hr 05/01/20 05/01/20 05/01/20 12:30 12:30 12:30 WBC 7.57 RBC 5.56 Hgb 15.0 Hct 48.0 MCV 86.3 MCH 27.0 MCHC 31.3 L RDW Std Deviation 47.9 H RDW Coeff of Abhijit 15.3 H Plt Count 204 MPV 10.8 H Immature Gran % (Auto) 0.1 Neut % (Auto) 72.7 Lymph % (Auto) 15.3 Bonner % (Auto) 10.3 Eos % (Auto) 1.3 Baso % (Auto) 0.3 Neut # (Auto) 5.50 Lymph # (Auto) 1.16 L Bonner # (Auto) 0.78 H Eos # (Auto) 0.10 Baso # (Auto) 0.02 Immature Gran # (Auto) 0.01 PT 13.5 H INR 1.4 H APTT 24.8 PTT Ratio 0.9 Sodium 142 Potassium 3.9 Chloride 110 H Carbon Dioxide 30 Anion Gap 2.0 L BUN 23 H Creatinine 0.93 Est Cr Clr Drug Dosing 132.7 Est GFR ( Amer) 104.5 Est GFR (Non-Af Amer) 90.2 BUN/Creatinine Ratio 24.5 H Glucose 116 H POC Glucose Calcium 9.0 Magnesium Total Bilirubin 0.7 AST 22 ALT 24 Alkaline Phosphatase 57 Total Creatine Kinase 105 CK-MB (CK-2) 2.2 CK/CKMB % Calc 2.1 Troponin I < 0.015 C-Reactive Protein NT-Pro-B Natriuret Pep 2163 H Total Protein 8.0 Albumin 3.7 Globulin 4.3 H Albumin/Globulin Ratio 0.9 Triglycerides Cholesterol LDL Cholesterol, Calc VLDL Cholesterol, Calc HDL Cholesterol Cholesterol/HDL Ratio Lipase 118 Urine Color Urine Appearance Urine pH Ur Specific Vernon Urine Protein Urine Glucose (UA) Urine Ketones Urine Blood Urine Nitrite Urine Bilirubin Urine Urobilinogen Ur Leukocyte Esterase Ur Random Creatinine U Random Total Protein Protein/Creatinin Ratio COVID-19 Eval Order SARS-CoV-2 (PCR) Influenza Type A (PCR) Influenza Type B (PCR) RSV (RT-PCR) 05/01/20 05/01/20 05/01/20 12:34 12:34 17:45 WBC RBC Hgb Hct MCV MCH MCHC RDW Std Deviation RDW Coeff of Abhijit Plt Count MPV Immature Gran % (Auto) Neut % (Auto) Lymph % (Auto) Bonner % (Auto) Eos % (Auto) Baso % (Auto) Neut # (Auto) Lymph # (Auto) Bonner # (Auto) Eos # (Auto) Baso # (Auto) Immature Gran # (Auto) PT INR APTT PTT Ratio Sodium Potassium Chloride Carbon Dioxide Anion Gap BUN Creatinine Est Cr Clr Drug Dosing Est GFR ( Amer) Est GFR (Non-Af Amer) BUN/Creatinine Ratio Glucose POC Glucose 94 Calcium Magnesium Total Bilirubin AST ALT Alkaline Phosphatase Total Creatine Kinase CK-MB (CK-2) CK/CKMB % Calc Troponin I C-Reactive Protein NT-Pro-B Natriuret Pep Total Protein Albumin Globulin Albumin/Globulin Ratio Triglycerides Cholesterol LDL Cholesterol, Calc VLDL Cholesterol, Calc HDL Cholesterol Cholesterol/HDL Ratio Lipase Urine Color Urine Appearance Urine pH Ur Specific [place] Urine Protein Urine Glucose (UA) Urine Ketones Urine Blood Urine Nitrite Urine Bilirubin Urine Urobilinogen Ur Leukocyte Esterase Ur Random Creatinine U Random Total Protein Protein/Creatinin Ratio COVID-19 Eval Order CovFluRsv at [facility] SARS-CoV-2 (PCR) NEGATIVE Influenza Type A (PCR) Negative Influenza Type B (PCR) Negative RSV (RT-PCR) Negative 05/01/20 05/01/20 05/01/20 18:00 18:00 21:01 WBC RBC Hgb Hct MCV MCH MCHC RDW Std Deviation RDW Coeff of Abhijit Plt Count MPV Immature Gran % (Auto) Neut % (Auto) Lymph % (Auto) Bonner % (Auto) Eos % (Auto) Baso % (Auto) Neut # (Auto) Lymph # (Auto) Bonner # (Auto) Eos # (Auto) Baso # (Auto) Immature Gran # (Auto) PT INR APTT PTT Ratio Sodium Potassium Chloride Carbon Dioxide Anion Gap BUN Creatinine Est Cr Clr Drug Dosing Est GFR ( Amer) Est GFR (Non-Af Amer) BUN/Creatinine Ratio Glucose POC Glucose 101 H Calcium Magnesium Total Bilirubin AST ALT Alkaline Phosphatase Total Creatine Kinase CK-MB (CK-2) CK/CKMB % Calc Troponin I C-Reactive Protein NT-Pro-B Natriuret Pep Total Protein Albumin Globulin Albumin/Globulin Ratio Triglycerides Cholesterol LDL Cholesterol, Calc VLDL Cholesterol, Calc HDL Cholesterol Cholesterol/HDL Ratio Lipase Urine Color Yellow Urine Appearance Clear Urine pH 5.0 Ur Specific Vernon 1.021 Urine Protein Negative Urine Glucose (UA) Negative Urine Ketones Negative Urine Blood Negative Urine Nitrite Negative Urine Bilirubin Negative Urine Urobilinogen Negative Ur Leukocyte Esterase Negative Ur Random Creatinine 27.3 U Random Total Protein < 5.0 Protein/Creatinin Ratio TNP COVID-19 Eval Order SARS-CoV-2 (PCR) Influenza Type A (PCR) Influenza Type B (PCR) RSV (RT-PCR) 05/02/20 05/02/20 05/02/20 06:03 06:03 07:15 WBC 7.30 RBC 5.43 Hgb 14.8 Hct 46.3 MCV 85.3 MCH 27.3 MCHC 32.0 RDW Std Deviation 48.4 H RDW Coeff of Abhijit 15.3 H Plt Count 218 MPV 10.7 H Immature Gran % (Auto) Neut % (Auto) Lymph % (Auto) Bonner % (Auto) Eos % (Auto) Baso % (Auto) Neut # (Auto) Lymph # (Auto) Bonner # (Auto) Eos # (Auto) Baso # (Auto) Immature Gran # (Auto) PT INR APTT PTT Ratio Sodium 143 Potassium 3.8 Chloride 108 H Carbon Dioxide 33 H Anion Gap 2.0 L BUN 21 H Creatinine 1.09 Est Cr Clr Drug Dosing 121.6 Est GFR ( Amer) 86.3 Est GFR (Non-Af Amer) 74.4 BUN/Creatinine Ratio 19.3 Glucose 104 H POC Glucose 90 Calcium 8.9 Magnesium 2.1 Total Bilirubin AST ALT Alkaline Phosphatase Total Creatine Kinase CK-MB (CK-2) CK/CKMB % Calc Troponin I C-Reactive Protein 1.31 H NT-Pro-B Natriuret Pep 2338 H Total Protein Albumin Globulin Albumin/Globulin Ratio Triglycerides 59 Cholesterol 128 LDL Cholesterol, Calc 88 VLDL Cholesterol, Calc 12 HDL Cholesterol 28 Cholesterol/HDL Ratio 5 Lipase Urine Color Urine Appearance Urine pH Ur Specific [place] Urine Protein Urine Glucose (UA) Urine Ketones Urine Blood Urine Nitrite Urine Bilirubin Urine Urobilinogen Ur Leukocyte Esterase Ur Random Creatinine U Random Total Protein Protein/Creatinin Ratio COVID-19 Eval Order SARS-CoV-2 (PCR) Influenza Type A (PCR) Influenza Type B (PCR) RSV (RT-PCR) Diagnostic Findings EKG reveals a sinus rhythm with nonspecific ST and T wave changes and occasional PVC Echocardiogram completed this morning which needs to be reviewed. Medications Administered Current Inpatient Medications Acetaminophen (Acetaminophen 325 Mg Tab) 650 mg PO Q4H PRN PRN Reason: Moderate Pain Stop: 05/31/20 17:18 Dextrose (Dextrose 50% 50 Ml Syringe) 25 - 50 ml IV UD PRN; Protocol PRN Reason: Hypoglycemia Protocol Stop: 05/31/20 17:18 Glucagon (Glucagon For Inj 1 Mg Vial) 1 mg SQ UD PRN; Protocol PRN Reason: Hypoglycemia Protocol Stop: 05/31/20 17:18 Glucose (Glucose 10 Tabs/Tube) 4 - 8 tabs PO UD PRN; Protocol PRN Reason: Hypoglycemia Protocol Stop: 05/31/20 17:18 Glucose (Glucose 40% Gel 15 Gm Tube) 15 - 30 gm PO UD PRN; Protocol PRN Reason: Hypoglycemia Protocol Stop: 05/31/20 17:18 Heparin Sodium (Porcine) (Heparin Sod 5,000 Unit/0.5 Ml Vial) 5,000 units SQ Q8 [facility] Stop: 05/31/20 19:14 Last Admin: 05/02/20 05:33 Dose: 5,000 units Documented by: Cefazolin Sodium (Ancef 2000mg) 2,000 mg in 15 mls @ 3.75 mls/min IV Q8H [facility] Stop: 05/08/20 20:59 Last Admin: 05/02/20 05:32 Dose: 3.75 mls/min Documented by: Furosemide 40 mg/ Syringe 4 mls @ 4 mls/min IV Q12H [facility] Stop: 06/01/20 05:59 Last Admin: 05/02/20 05:31 Dose: 4 mls/min Documented by: Insulin Aspart (Insulin Aspart 100 Units/Ml 3 Ml Pen) 0 units SC ACHS [facility] Stop: 05/31/20 17:18 Last Admin: 05/01/20 21:05 Dose: Not Given Documented by: Miscellaneous (Carbohydrates For Hypoglycemia ) 15 - 30 gm PO UD PRN PRN Reason: Hypoglycemia Protocol Stop: 05/31/20 17:18 Multivitamins/Minerals (Cerovite Adv Formula Tab) 1 tab PO QAM [facility] Stop: 06/01/20 08:59 Last Admin: 05/02/20 08:23 Dose: 1 tab Documented by: Nitroglycerin (Nitroglycerin 2% Ointment 30gm Tube) 0.5 inch EXT Q6H [facility] Stop: 05/31/20 20:59 Last Admin: 05/02/20 08:23 Dose: 0.5 inch Documented by: Ondansetron HCl (Ondansetron Inj 2 Mg/Ml 2 Ml Vial) 4 mg IV Q4H PRN PRN Reason: Nausea And Vomiting Stop: 05/31/20 17:18
[2020-05-02] MEDS ORDERED: FUROSEMIDE 40 MG in SYRINGE 0 ML IV SCH (09:00)
[2020-05-02] MEDS: INSULIN ASPART 100 UNITS/ML 3 ML PEN SC SCH ×4 (09:30→21:17)
--- NOTE | 2020-05-02 11:46 | Hospitalist Progress Note ---
Date of Service May 02, 2020 Assessment & Plan (1) Acute systolic heart failure due to valvular disease: Echo reveals EF 45-50% with moderate MR. He remains tachycardic and sinus rhythm. Guideline directed drug therapy per Cardiology. Cont with Lasix for now. 4lb loss overnight and starting to feel better but he has a long way to go. Cont low salt diet, daily weights and strict I/O monitoring in this patient without a keith in place. Stopped nitro. BP within normal range and he is responsive to diuretic therapy. (2) Mitral regurgitation: Likely moreso chronic with dilated heart on echo demonstrating some evidence of compensation. Defer long-term management to cardiology. (3) Cellulitis of right lower extremity: Improved significantly on Ancef overnight, cont short antibiotic course. (4) HTN (hypertension): -Elevated 156/108 on admission -Diet and exercise will need to be promoted during and after hospitalization -Likely will need Beta blockade and LEAH eventually --cont to monitor in PCU (5) New onset type 2 diabetes mellitus: -A1c of 6.5 as of 04/30/2020 -Diabetic consult as new diagnosis for the patient to help with education. -ISS with accuchecks achs -no evidence of proteinuria No medical therapy needed at this time upon discharge, however, lifestyle modifications are strongly encouraged to help him reduce percent body fat. (6) Morbid obesity with BMI of 45.0-49.9, adult: - Diet and exercise - HH diet, fluid restriction as above -high risk for sleep apnea-outpatient sleep study is recommended. (7) DVT prophylaxis: - teds, scds, heparin subq CODE: Full Dispo: cont PCU monitoring, expect him to be here through the weekend. Discharge to home when medically stable. Jewell Giraldo DO [facility] Hospitalist Admission and Anticipated Discharge Date Admission Date: May 01, 2020 Subjective 59 yoM with morbid obesity presented with acute heart failure symptoms pr ogressive for 1 month pt reports getting some sleep feels breathing has improved denies chest pain or other pain did use some oxygen overnight feels his RLE is looking improved Review of Systems Review of Systems: All systems reviewed & are unremarkable except as noted in Subjective Physical Exam Physical Exam: CONSTITUTIONAL: obese, vitals as above, generally well- appearing EYES: normal conjunctivae, no scleral icterus ENT: external ear and nose normal, MMM RESPIRATORY: clear to auscultation bilaterally, no crackles, rales or wheezes, normal respiratory effort, breath sounds are diminished likely 2/2 body wall edema and large body habitus. CARDIOVASCULAR: regular rate and rhythm, S1 and 2 heard without murmurs, gallops or rubs, heart sounds are distant, no JVD, 3+ pitting edema on abdomen and peripheral lower extremities. GASTROINTESTINAL: soft, protuberant, nontender MUSCULOSKELETAL: strength 5/5 throughout, head is normocephalic and atraumatic SKIN: warm and dry, RLE erythema has significantly improved compared to yesterday, skin is more light pink today. NEUROLOGIC: CN 2-12 grossly intact, no sensory deficit, normal cognition, normal speech, no gross focal deficits. PSYCHIATRIC: alert cooperative and oriented to person, place and time. Results & Data Results & Data ([facility]) Vital Signs (Past 12 Hours) Vital Signs Temp Pulse Resp BP Pulse Ox Pulse Ox 05/02/20 08:24 36.8 C 109 H 17 136/94 91 05/02/20 08:00 90 05/02/20 04:07 36.4 C L 100 H 20 121/74 90 Laboratory Results Short CBC 05/01/20 05/02/20 Range/Units 12:30 06:03 WBC 7.57 7.30 (4.8-10.8) K/uL Hgb 15.0 14.8 (14.0-18.0) g/dL Hct 48.0 46.3 (42-52) % Plt Count 204 218 (130-400) K/uL BMP 05/01/20 05/02/20 12:30 06:03 Sodium 142 143 Potassium 3.9 3.8 Chloride 110 H 108 H Carbon Dioxide 30 33 H BUN 23 H 21 H Creatinine 0.93 1.09 Glucose 116 H 104 H Calcium 9.0 8.9 Cardiac Enzymes 05/01/20 Range/Units 12:30 Total Creatine Kinase 105 (39-308) U/L CK-MB (CK-2) 2.2 (0.5-3.6) ng/ml Troponin I < 0.015 (0-0.045) ng/ml Liver Function 05/01/20 Range/Units 12:30 Total Bilirubin 0.7 (0.2-1) mg/dl AST 22 (15-37) U/L ALT 24 (12-78) U/L Alkaline Phosphatase 57 (45-117) U/L Albumin 3.7 (3.4-5.0) gm/dl Urine 05/01/20 Range/Units 18:00 Urine Color Yellow Urine Appearance Clear (Clear) Urine pH 5.0 (4.5-7.5) Ur Specific [place] 1.021 (1.000-1.030) Urine Protein Negative (Negative) Urine Glucose (UA) Negative (Negative) Medications Administered Current Inpatient Medications Acetaminophen (Acetaminophen 325 Mg Tab) 650 mg PO Q4H PRN PRN Reason: Moderate Pain Stop: 05/31/20 17:18 Dextrose (Dextrose 50% 50 Ml Syringe) 25 - 50 ml IV UD PRN; Protocol PRN Reason: Hypoglycemia Protocol Stop: 05/31/20 17:18 Glucagon (Glucagon For Inj 1 Mg Vial) 1 mg SQ UD PRN; Protocol PRN Reason: Hypoglycemia Protocol Stop: 05/31/20 17:18 Glucose (Glucose 10 Tabs/Tube) 4 - 8 tabs PO UD PRN; Protocol PRN Reason: Hypoglycemia Protocol Stop: 05/31/20 17:18 Glucose (Glucose 40% Gel 15 Gm Tube) 15 - 30 gm PO UD PRN; Protocol PRN Reason: Hypoglycemia Protocol Stop: 05/31/20 17:18 Heparin Sodium (Porcine) (Heparin Sod 5,000 Unit/0.5 Ml Vial) 5,000 units SQ Q8 [facility] Stop: 05/31/20 19:14 Last Admin: 05/02/20 05:33 Dose: 5,000 units Documented by: Cefazolin Sodium (Ancef 2000mg) 2,000 mg in 15 mls @ 3.75 mls/min IV Q8H [facility] Stop: 05/08/20 20:59 Last Admin: 05/02/20 05:32 Dose: 3.75 mls/min Documented by: Furosemide 40 mg/ Syringe 4 mls @ 4 mls/min IV Q12H [facility] Stop: 06/01/20 05:59 Last Admin: 05/02/20 05:31 Dose: 4 mls/min Documented by: Insulin Aspart (Insulin Aspart 100 Units/Ml 3 Ml Pen) 0 units SC ACHS [facility] Stop: 05/31/20 17:18 Last Admin: 05/02/20 09:30 Dose: Not Given Documented by: Miscellaneous (Carbohydrates For Hypoglycemia ) 15 - 30 gm PO UD PRN PRN Reason: Hypoglycemia Protocol Stop: 05/31/20 17:18 Multivitamins/Minerals (Cerovite Adv Formula Tab) 1 tab PO QAM [facility] Stop: 06/01/20 08:59 Last Admin: 05/02/20 08:23 Dose: 1 tab Documented by: Nitroglycerin (Nitroglycerin 2% Ointment 30gm Tube) 0.5 inch EXT Q6H [facility] Stop: 05/31/20 20:59 Last Admin: 05/02/20 08:23 Dose: 0.5 inch Documented by: Ondansetron HCl (Ondansetron Inj 2 Mg/Ml 2 Ml Vial) 4 mg IV Q4H PRN PRN Reason: Nausea And Vomiting Stop: 05/31/20 17:18
[2020-05-03] MEDS: ceFAZolin 2000MG 2,000 MG/15 ML SYR IV SCH ×3 (05:36→20:20)
[2020-05-03] MEDS: FUROSEMIDE 40 MG in SYRINGE 0 ML IV SCH ×2 (05:37→18:06)
[2020-05-03] MEDS: HEPARIN SOD 5,000 UNIT/0.5 ML VIAL SQ SCH ×3 (05:38→22:22)
[2020-05-03 07:14] LABS: Hematocrit (blood only) 47.2 % (42-52); Hemoglobin 14.6 g/dL (14.0-18.0); Mean Corpuscular Hgb Conc 30.9 g/dL (32-36); Mean Corpuscular Volume 87.4 fL (80-100); Mean Platelet Volume 10.6 fL (7.4-10.4); Platelet Count 204 K/uL (130-400); RDW Coefficient of Variation 15.4 % (11.5-14.5); RDW Standard Deviation 48.9 fL (36.4-46.3); White Blood Count 6.49 K/uL (4.8-10.8)
[2020-05-03 07:46] LABS: BUN Creatinine Ratio 18.7 (10-20); Calcium 8.8 mg/dl (8.5-10.1); Creatinine Clr Calc Pharmacy 105.2 ml/min; Est GFR (African American) 73.8; Est GFR (Non-African American) 63.7; Potassium 3.6 mmol/L (3.5-5.1)
[2020-05-03] MEDS: INSULIN ASPART 100 UNITS/ML 3 ML PEN SC SCH ×4 (08:01→20:26)
[2020-05-03] MEDS: CEROVITE ADV FORMULA TAB PO SCH (08:23)
--- NOTE | 2020-05-03 11:44 | Cardiology Progress Note ---
Date of Service May 03, 2020 Assessment & Plan (1) Cellulitis of right lower extremity: Per medicine being covered by antibiotics (2) CHF (congestive heart failure): I would continue the diuretics through today. I have added lisinopril 10 mg daily starting today and tomorrow we will start metoprolol XL 25 mg daily. (3) New onset type 2 diabetes mellitus: Treated by medicine and covered with insulin. (4) Morbid obesity with BMI of 45.0-49.9, adult: Suggested weight loss the patient as his weight is his most important health risk. (5) Sleep apnea: The nocturnal oximetry indicates that he desaturates and he most likely has no OSB. He will need oxygen at night until he has further sleep evaluation completed as an outpatient. Admission and Anticipated Discharge Date Admission Date: May 01, 2020 Subjective The patient had an uneventful night. The continues to diurese and is feeling improvement every day. He did not desaturate at night on his oximeter and he will need ongoing oxygen at night. Review of Systems Review of Systems: All systems reviewed & are unremarkable except as noted in Subjective Physical Exam Physical Exam: General: no acute distress and stated age Head: normocephalic, no masses, lesions, tenderness or abnormalities Eyes: conjunctiva are pink and non-injected, sclera clear Neck: supple, no adenopathy, no bruits, normal jugular venous pulse, no hepatojugular reflux Chest: normal shape and normal respiratory effort Lungs: clear to auscultation and percussion Cardiac Exam: - regular rate & rhythm, no murmurs gallops or rubs - normal S1, normal S2 Pulses: 2(+) throughout Abdomen: abdomen soft, non-tender, no abnormal masses and no hepatosplenomegaly Musculoskeletal: no gait disturbance, no joint inflammation, no deforming arthritis Extremities: The patient has lower extremity edema Neuro: grossly normal exam Results & Data ([facility]) Vital Signs (Past 12 Hours) Vital Signs Temp Pulse Pulse Pulse Resp BP BP 05/03/20 11:35 36.7 C 94 H 19 121/84 05/03/20 06:59 36.5 C 94 H 19 118/79 05/03/20 05:31 80 05/03/20 03:49 88 05/03/20 03:31 36.5 C 96 H 21 97/60 L 05/03/20 01:37 97 H 05/03/20 00:17 97 H 05/03/20 00:09 38.1 C H 62 19 134/77 Pulse Ox Pulse Ox 05/03/20 11:35 93 05/03/20 06:59 91 05/03/20 05:31 99 05/03/20 03:49 97 05/03/20 03:31 96 05/03/20 01:37 83 L 05/03/20 00:17 05/03/20 00:09 95 Laboratory Results Laboratory Results - last 24 hr 05/02/20 05/02/20 05/03/20 16:25 20:00 06:32 WBC 6.49 RBC 5.40 Hgb 14.6 Hct 47.2 MCV 87.4 MCH 27.0 MCHC 30.9 L RDW Std Deviation 48.9 H RDW Coeff of Abhijit 15.4 H Plt Count 204 MPV 10.6 H Sodium Potassium Chloride Carbon Dioxide Anion Gap BUN Creatinine Est Cr Clr Drug Dosing Est GFR ( Amer) Est GFR (Non-Af Amer) BUN/Creatinine Ratio Glucose POC Glucose 93 118 H Calcium Magnesium 05/03/20 05/03/20 06:32 07:02 WBC RBC Hgb Hct MCV MCH MCHC RDW Std Deviation RDW Coeff of Abhijit Plt Count MPV Sodium 144 Potassium 3.6 Chloride 105 Carbon Dioxide 35 H Anion Gap 4.0 BUN 23 H Creatinine 1.24 Est Cr Clr Drug Dosing 105.2 Est GFR ( Amer) 73.8 Est GFR (Non-Af Amer) 63.7 BUN/Creatinine Ratio 18.7 Glucose 98 POC Glucose 96 Calcium 8.8 Magnesium 2.0 Medications Administered Current Inpatient Medications Acetaminophen (Acetaminophen 325 Mg Tab) 650 mg PO Q4H PRN PRN Reason: Moderate Pain Stop: 05/31/20 17:18 Last Admin: 05/02/20 19:52 Dose: 650 mg Documented by: Dextrose (Dextrose 50% 50 Ml Syringe) 25 - 50 ml IV UD PRN; Protocol PRN Reason: Hypoglycemia Protocol Stop: 05/31/20 17:18 Glucagon (Glucagon For Inj 1 Mg Vial) 1 mg SQ UD PRN; Protocol PRN Reason: Hypoglycemia Protocol Stop: 05/31/20 17:18 Glucose (Glucose 10 Tabs/Tube) 4 - 8 tabs PO UD PRN; Protocol PRN Reason: Hypoglycemia Protocol Stop: 05/31/20 17:18 Glucose (Glucose 40% Gel 15 Gm Tube) 15 - 30 gm PO UD PRN; Protocol PRN Reason: Hypoglycemia Protocol Stop: 05/31/20 17:18 Heparin Sodium (Porcine) (Heparin Sod 5,000 Unit/0.5 Ml Vial) 5,000 units SQ Q8 [facility] Stop: 05/31/20 19:14 Last Admin: 05/03/20 05:38 Dose: 5,000 units Documented by: Cefazolin Sodium (Ancef 2000mg) 2,000 mg in 15 mls @ 3.75 mls/min IV Q8H [facility] Stop: 05/08/20 20:59 Last Admin: 05/03/20 05:36 Dose: 3.75 mls/min Documented by: Furosemide 40 mg/ Syringe 4 mls @ 4 mls/min IV Q12H [facility] Stop: 06/01/20 05:59 Last Admin: 05/03/20 05:37 Dose: 4 mls/min Documented by: Insulin Aspart (Insulin Aspart 100 Units/Ml 3 Ml Pen) 0 units SC ACHS [facility] Stop: 05/31/20 17:18 Last Admin: 05/03/20 08:01 Dose: Not Given Documented by: Lisinopril (L[facility]opril 10 Mg Tab) [facility] [place]: 06/02/20 11:59 Metoprolol Succinate (Metoprolol Succ 25mg Ext Rel Tab) 25 mg PO [facility] Stop: 06/03/20 08:59 Miscellaneous (Carbohydrates For Hypoglycemia ) 15 - 30 gm PO UD PRN PRN Reason: Hypoglycemia Protocol Stop: 05/31/20 17:18 Multivitamins/Minerals (Cerovite Adv Formula Tab) 1 [facility] [place]: 06/01/20 08:59 Last Admin: 05/03/20 08:23 Dose: 1 tab Documented by: Ondansetron HCl (Ondansetron Inj 2 Mg/Ml 2 Ml Vial) 4 mg IV Q4H PRN PRN Reason: Nausea And Vomiting Stop: 05/31/20 17:18
[2020-05-03] MEDS: lisinopril 10 MG TAB PO SCH (12:42)
[2020-05-04] MEDS: HEPARIN SOD 5,000 UNIT/0.5 ML VIAL SQ SCH ×3 (05:07→22:21)
[2020-05-04] MEDS: ceFAZolin 2000MG 2,000 MG/15 ML SYR IV SCH ×3 (05:07→20:22)
[2020-05-04] MEDS: FUROSEMIDE 40 MG in SYRINGE 0 ML IV SCH ×2 (05:07→18:02)
[2020-05-04 07:49] LABS: Hematocrit (blood only) 47.5 % (42-52); Hemoglobin 14.7 g/dL (14.0-18.0); Mean Corpuscular Hgb Conc 30.9 g/dL (32-36); Mean Corpuscular Volume 87.2 fL (80-100); Platelet Count 200 K/uL (130-400); RDW Coefficient of Variation 15.3 % (11.5-14.5); RDW Standard Deviation 48.5 fL (36.4-46.3); Red Blood Count 5.45 M/uL (4.7-6.1); White Blood Count 6.61 K/uL (4.8-10.8)
[2020-05-04] MEDS: INSULIN ASPART 100 UNITS/ML 3 ML PEN SC SCH ×4 (08:14→21:15)
[2020-05-04] MEDS: lisinopril 10 MG TAB PO SCH (08:15)
[2020-05-04] MEDS: CEROVITE ADV FORMULA TAB PO SCH (08:15)
[2020-05-04] MEDS: METOPROLOL SUCC 25MG EXT REL TAB PO SCH (08:15)
--- NOTE | 2020-05-04 09:57 | Hospitalist Progress Note ---
Date of Service May 03, 2020 Assessment & Plan (1) Acute systolic heart failure due to valvular disease: Echo reveals EF 45-50% with moderate MR. He remains tachycardic and sinus rhythm. Guideline directed drug therapy per Cardiology. Cont with Lasix for now. Cont low salt diet, daily weights and strict I/O monitoring in this patient without a keith in place. BP within normal range and he is responsive to diuretic therapy. (2) Mitral regurgitation: Likely chronic with dilated heart on echo demonstrating some evidence of compensation. Defer long-term management to cardiology. (3) Cellulitis of right lower extremity: Improved significantly on Ancef overnight, cont short antibiotic course. (4) HTN (hypertension): -Elevated 156/108 on admission -Diet and exercise will need to be promoted during and after hospitalization -Likely will need Beta blockade and LEAH eventually-defer start to cards -cont to monitor in PCU (5) New onset type 2 diabetes mellitus: -A1c of 6.5 as of 04/30/2020 -Diabetic consult as new diagnosis for the patient to help with education. -ISS with accuchecks achs -no evidence of proteinuria No medical therapy needed at this time upon discharge, however, lifestyle modifications are strongly encouraged to help him reduce percent body fat. (6) Morbid obesity with BMI of 45.0-49.9, adult: - Diet and exercise - HH diet, fluid restriction as above -high risk for sleep apnea-outpatient sleep study is recommended. (7) Nocturnal hypoxia: Overnight pulse ox positive-patient requires 4L via NC overnight while sleeping. Recommended outpatient sleep study to screen for BERE. (8) DVT prophylaxis: - teds, scds, heparin subq CODE: Full Dispo: cont PCU monitoring, expect him to be here through the weekend. Discharge to home when medically stable. [facility] Admission and Anticipated Discharge Date Admission Date: May 01, 2020 Subjective 59 yoM with morbid obesity presented with acute heart failure symptoms progressive for 1 month feels breathing has improved denies chest pain or other pain feel RLE looking better and his swelling is going down pulse oximetry study was positive overnight-requires 4LNC at night we discussed lifestyle modifications and the importance of a sleep study to screen for BERE Review of Systems Review of Systems: All systems reviewed & are unremarkable except as noted in Subjective Physical Exam Physical Exam: CONSTITUTIONAL: obese, vitals as above, generally well- appearing EYES: normal conjunctivae, no scleral icterus ENT: external ear and nose normal, MMM RESPIRATORY: clear to auscultation bilaterally, no crackles, rales or wheezes, normal respiratory effort, breath sounds are diminished bilaterally CARDIOVASCULAR: regular rate and rhythm, S1 and 2 heard without murmurs, gallops or rubs, heart sounds are distant, no JVD, trace edema bilateral lower extremities. GASTROINTESTINAL: soft, protuberant, nontender MUSCULOSKELETAL: strength 5/5 throughout, head is normocephalic and atraumatic SKIN: warm and dry NEUROLOGIC: CN 2-12 grossly intact, no sensory deficit, normal cognition, normal speech, no gross focal deficits. PSYCHIATRIC: alert cooperative and oriented to person, place and time. Results & Data Results & Data ([facility]) Vital Signs (Past 12 Hours) Vital Signs Temp Pulse Pulse Resp BP BP Pulse Ox 05/04/20 07:25 36.4 C L 93 H 18 119/77 95 05/04/20 04:00 36.5 C 94 H 20 88/54 L 94 05/03/20 23:00 36.6 C 97 H 20 108/60 98 05/03/20 22:20 94 H
--- NOTE | 2020-05-04 10:04 | Hospitalist Progress Note ---
Date of Service May 04, 2020 Assessment & Plan (1) Acute systolic heart failure due to valvular disease: Echo reveals EF 45-50% with moderate MR. He remains tachycardic and sinus rhythm. Guideline directed drug therapy per Cardiology including lisinopril 10mg daily and Toprol XL 25mg daily. Cont with Lasix for now. Cont low salt diet, daily weights and strict I/O monitoring in this patient without a keith in place. (2) Mitral regurgitation: Likely chronic with dilated heart on echo demonstrating some evidence of compensation. Defer long-term management to cardiology. (3) Cellulitis of right lower extremity: Improved significantly on Ancef, cont short antibiotic course. (4) HTN (hypertension): -Elevated 156/108 on admission, but this has improved and is now within goal. -Diet and exercise will need to be promoted during and after hospitalization -Toprol and Lisinopril recently started as above. -PCP followup as outpatient in 1-2 weeks with BMP in two weeks. (5) New onset type 2 diabetes mellitus: -A1c of 6.5 as of 04/30/2020 -ISS with accuchecks achs -no evidence of proteinuria No medical therapy needed at this time upon discharge, however, lifestyle modifications are strongly encouraged to help him reduce percent body fat. (6) Morbid obesity with BMI of 45.0-49.9, adult: - Diet and exercise - HH diet, fluid restriction as above -high risk for sleep apnea-outpatient sleep study is recommended. (7) Nocturnal hypoxia: Overnight pulse ox positive-patient requires 4L via NC overnight while sleeping. Recommended outpatient sleep study to screen for BERE. (8) DVT prophylaxis: Teds, scds, heparin subq CODE: Full Dispo: cont PCU monitoring, expect him to be here through the weekend. Discharge to home when medically stable. [facility] Admission and Anticipated Discharge Date Admission Date: May 01, 2020 Subjective 59 yoM with morbid obesity presented with acute heart failure symptoms progressive for 1 month feels breathing has improved on several days of intravenous diuretic therapy swelling in abdomen and legs is improved denies chest pain or other pain less dyspnea with exertion now Review of Systems Review of Systems: All systems reviewed & are unremarkable except as noted in Subjective Physical Exam Physical Exam: CONSTITUTIONAL: obese, vitals as above, generally well- appearing EYES: normal conjunctivae, no scleral icterus ENT: external ear and nose normal, MMM RESPIRATORY: clear to auscultation bilaterally, no crackles, rales or wheezes, normal respiratory effort, breath sounds are diminished bilaterally. No conversational dyspnea. CARDIOVASCULAR: regular rate and rhythm, S1 and 2 heard without murmurs, gallops or rubs, heart sounds are distant, no JVD, trace edema bilateral lower extremities. GASTROINTESTINAL: soft, protuberant, nontender MUSCULOSKELETAL: strength 5/5 throughout, head is normocephalic and atraumatic SKIN: warm and dry NEUROLOGIC: CN 2-12 grossly intact, no sensory deficit, normal cognition, normal speech, no gross focal deficits. PSYCHIATRIC: alert cooperative and oriented to person, place and time. Results & Data Results & Data ([facility]) Vital Signs (Past 12 Hours) Vital Signs Temp Pulse Pulse Resp BP BP Pulse Ox 05/04/20 07:25 36.4 C L 93 H 18 119/77 95 05/04/20 04:00 36.5 C 94 H 20 88/54 L 94 05/03/20 23:00 36.6 C 97 H 20 108/60 98 05/03/20 22:20 94 H Laboratory Results Short CBC 05/04/20 Range/Units 06:23 WBC 6.61 (4.8-10.8) K/uL Hgb 14.7 (14.0-18.0) g/dL Hct 47.5 (42-52) % Plt Count 200 (130-400) K/uL Medications Administered Current Inpatient Medications Acetaminophen (Acetaminophen 325 Mg Tab) 650 mg PO Q4H PRN PRN Reason: Moderate Pain Stop: 05/31/20 17:18 Last Admin: 05/02/20 19:52 Dose: 650 mg Documented by: Dextrose (Dextrose 50% 50 Ml Syringe) 25 - 50 ml IV UD PRN; Protocol PRN Reason: Hypoglycemia Protocol Stop: 05/31/20 17:18 Glucagon (Glucagon For Inj 1 Mg Vial) 1 mg SQ UD PRN; Protocol PRN Reason: Hypoglycemia Protocol Stop: 05/31/20 17:18 Glucose (Glucose 10 Tabs/Tube) 4 - 8 tabs PO UD PRN; Protocol PRN Reason: Hypoglycemia Protocol Stop: 05/31/20 17:18 Glucose (Glucose 40% Gel 15 Gm Tube) 15 - 30 gm PO UD PRN; Protocol PRN Reason: Hypoglycemia Protocol Stop: 05/31/20 17:18 Heparin Sodium (Porcine) (Heparin Sod 5,000 Unit/0.5 Ml Vial) 5,000 units SQ Q8 [facility] Stop: 05/31/20 19:14 Last Admin: 05/04/20 05:07 Dose: 5,000 units Documented by: Cefazolin Sodium (Ancef 2000mg) 2,000 mg in 15 mls @ 3.75 mls/min IV Q8H [facility] Stop: 05/08/20 20:59 Last Admin: 05/04/20 05:07 Dose: 3.75 mls/min Documented by: Furosemide 40 mg/ Syringe 4 mls @ 4 mls/min IV Q12H [facility] Stop: 06/01/20 05:59 Last Admin: 05/04/20 05:07 Dose: 4 mls/min Documented by: Insulin Aspart (Insulin Aspart 100 Units/Ml 3 Ml Pen) 0 units SC ACHS [facility] Stop: 05/31/20 17:18 Last Admin: 05/04/20 08:14 Dose: Not Given Documented by: Lisinopril (Lisinopril 10 Mg Tab) 10 mg PO QAM [facility] Stop: 06/02/20 11:59 Last Admin: 05/04/20 08:15 Dose: 10 mg Documented by: Metoprolol Succinate (Metoprolol Succ 25mg Ext Rel Tab) 25 mg PO QAM [facility] Stop: 06/03/20 08:59 Last Admin: 05/04/20 08:15 Dose: 25 mg Documented by: Miscellaneous (Carbohydrates For Hypoglycemia ) 15 - 30 gm PO UD PRN PRN Reason: Hypoglycemia Protocol Stop: 05/31/20 17:18 Multivitamins/Minerals (Cerovite Adv Formula Tab) 1 tab PO QAOK [facility] [place] Stop: 06/01/20 08:59 Last Admin: 05/04/20 08:15 Dose: 1 tab Documented by: Ondansetron HCl (Ondansetron Inj 2 Mg/Ml 2 Ml Vial) 4 mg IV Q4H PRN PRN Reason: Nausea And Vomiting Stop: 05/31/20 17:18
[2020-05-04 10:22] LABS: BUN Creatinine Ratio 17.9 (10-20); Creatinine Clr Calc Pharmacy 109.1 ml/min; Est GFR (African American) 77.6; Est GFR (Non-African American) 66.9; Potassium 3.5 mmol/L (3.5-5.1)
--- NOTE | 2020-05-04 12:33 | Cardiology Progress Note ---
Date of Service May 04, 2020 Assessment & Plan (1) Cellulitis of right lower extremity: Per medicine being covered by antibiotics (2) CHF (congestive heart failure): The patient still has some lower extremity edema and is retaining volume. He is diuresing well with the Lasix which I would continue through today. I uptitrated his lisinopril to 20 mg daily. I will reassess him tomorrow and if he continues to do well we may consider continue his care as an outpatient. (3) New onset type 2 diabetes mellitus: Treated by medicine and covered with insulin. (4) Morbid obesity with BMI of 45.0-49.9, adult: Suggested weight loss the patient as his weight is his most important health risk. (5) Sleep apnea: The nocturnal oximetry indicates that he desaturates and he most likely has no OSB. He will need oxygen at night until he has further sleep evaluation completed as an outpatient. Admission and Anticipated Discharge Date Admission Date: May 01, 2020 Subjective The patient had an uneventful night. He feels overall better now that she has lost a lot of fluid weight. Review of Systems Review of Systems: All systems reviewed & are unremarkable except as noted in Subjective Physical Exam Physical Exam: General: no acute distress and stated age Head: normocephalic, no masses, lesions, tenderness or abnormalities Eyes: conjunctiva are pink and non-injected, sclera clear Neck: supple, no adenopathy, no bruits, normal jugular venous pulse, no hepatojugular reflux Chest: normal shape and normal respiratory effort Lungs: clear to auscultation and percussion Cardiac Exam: - regular rate & rhythm, no murmurs gallops or rubs - normal S1, normal S2 Pulses: 2(+) throughout Abdomen: abdomen soft, non-tender, no abnormal masses and no hepatosplenomegaly Musculoskeletal: no gait disturbance, no joint inflammation, no deforming arthritis Extremities: no edema and no cyanosis Neuro: grossly normal exam Results & Data ([facility]) Vital Signs (Past 12 Hours) Vital Signs Temp Pulse Resp BP BP Pulse Ox 05/04/20 11:30 36.6 C 88 18 126/85 92 05/04/20 07:25 36.4 C L 93 H 18 119/77 95 05/04/20 04:00 36.5 C 94 H 20 88/54 L 94 Laboratory Results Laboratory Results - last 24 hr 05/03/20 05/03/20 05/04/20 16:46 20:24 06:23 WBC 6.61 RBC 5.45 Hgb 14.7 Hct 47.5 MCV 87.2 MCH 27.0 MCHC 30.9 L RDW Std Deviation 48.5 H RDW Coeff of Abhijit 15.3 H Plt Count 200 MPV 11.0 H Sodium Potassium Chloride Carbon Dioxide Anion Gap BUN Creatinine Est Cr Clr Drug Dosing Est GFR ( Amer) Est GFR (Non-Af Amer) BUN/Creatinine Ratio Glucose POC Glucose 89 89 Calcium Magnesium 05/04/20 05/04/20 05/04/20 06:23 07:18 11:29 WBC RBC Hgb Hct MCV MCH MCHC RDW Std Deviation RDW Coeff of Abhijit Plt Count MPV Sodium 140 Potassium 3.5 Chloride 101 Carbon Dioxide 37 H Anion Gap 3.0 BUN 21 H Creatinine 1.19 Est Cr Clr Drug Dosing 109.1 Est GFR ( Amer) 77.6 Est GFR (Non-Af Amer) 66.9 BUN/Creatinine Ratio 17.9 Glucose 88 POC Glucose 84 87 Calcium 9.0 Magnesium 2.0 Medications Administered Current Inpatient Medications Acetaminophen (Acetaminophen 325 Mg Tab) 650 mg PO Q4H PRN PRN Reason: Moderate Pain Stop: 05/31/20 17:18 Last Admin: 05/02/20 19:52 Dose: 650 mg Documented by: Dextrose (Dextrose 50% 50 Ml Syringe) 25 - 50 ml IV UD PRN; Protocol PRN Reason: Hypoglycemia Protocol Stop: 05/31/20 17:18 Glucagon (Glucagon For Inj 1 Mg Vial) 1 mg SQ UD PRN; Protocol PRN Reason: Hypoglycemia Protocol Stop: 05/31/20 17:18 Glucose (Glucose 10 Tabs/Tube) 4 - 8 tabs PO UD PRN; Protocol PRN Reason: Hypoglycemia Protocol Stop: 05/31/20 17:18 Glucose (Glucose 40% Gel 15 Gm Tube) 15 - 30 gm PO UD PRN; Protocol PRN Reason: Hypoglycemia Protocol Stop: 05/31/20 17:18 Heparin Sodium (Porcine) (Heparin Sod 5,000 Unit/0.5 Ml Vial) 5,000 units SQ Q8 [facility] Stop: 05/31/20 19:14 Last Admin: 05/04/20 05:07 Dose: 5,000 units Documented by: Cefazolin Sodium (Ancef 2000mg) 2,000 mg in 15 mls @ 3.75 mls/min IV Q8H [facility] Stop: 05/08/20 20:59 Last Admin: 05/04/20 11:55 Dose: 3.75 mls/min Documented by: Furosemide 40 mg/ Syringe 4 mls @ 4 mls/min IV Q12H [facility] Stop: 06/01/20 05:59 Last Admin: 05/04/20 05:07 Dose: 4 mls/min Documented by: Insulin Aspart (Insulin Aspart 100 Units/Ml 3 Ml Pen) 0 units SC [facility] Stop: 05/31/20 17:18 Last Admin: 05/04/20 12:19 Dose: Not Given Documented by: Lisinopril (Lisinopril 20 Mg Tab) 20 mg PO [facility] Stop: 06/04/20 08:59 Metoprolol Succinate (Metoprolol Succ 25mg Ext Rel Tab) 25 mg PO [facility] Stop: 06/03/20 08:59 Last Admin: 05/04/20 08:15 Dose: 25 mg Documented by: Miscellaneous (Carbohydrates For Hypoglycemia ) 15 - 30 gm PO UD PRN PRN Reason: Hypoglycemia Protocol Stop: 05/31/20 17:18 Multivitamins/Minerals (Cerovite Adv Formula Tab) 1 tab PO [facility] Stop: 06/01/20 08:59 Last Admin: 05/04/20 08:15 Dose: 1 tab Documented by: Ondansetron HCl (Ondansetron Inj 2 Mg/Ml 2 Ml Vial) 4 mg IV Q4H PRN PRN Reason: Nausea And Vomiting Stop: 05/31/20 17:18
[2020-05-05] MEDS: ceFAZolin 2000MG 2,000 MG/15 ML SYR IV SCH ×2 (06:13→13:46)
[2020-05-05] MEDS: HEPARIN SOD 5,000 UNIT/0.5 ML VIAL SQ SCH ×2 (06:13→13:46)
[2020-05-05] MEDS: FUROSEMIDE 40 MG in SYRINGE 0 ML IV SCH (06:13)
[2020-05-05 07:03] LABS: Hematocrit (blood only) 45.2 % (42-52); Hemoglobin 14.1 g/dL (14.0-18.0); Mean Corpuscular Hgb Conc 31.2 g/dL (32-36); Mean Corpuscular Volume 86.6 fL (80-100); Mean Platelet Volume 10.7 fL (7.4-10.4); Platelet Count 188 K/uL (130-400); RDW Coefficient of Variation 15.3 % (11.5-14.5); RDW Standard Deviation 48.6 fL (36.4-46.3); Red Blood Count 5.22 M/uL (4.7-6.1); White Blood Count 5.92 K/uL (4.8-10.8)
[2020-05-05 07:41] LABS: Calcium 8.5 mg/dl (8.5-10.1); Creatinine Clr Calc Pharmacy 107.9 ml/min; Est GFR (African American) 76.8; Est GFR (Non-African American) 66.3
[2020-05-05] MEDS: CEROVITE ADV FORMULA TAB PO SCH (08:19)
[2020-05-05] MEDS: METOPROLOL SUCC 25MG EXT REL TAB PO SCH (08:20)
[2020-05-05] MEDS: INSULIN ASPART 100 UNITS/ML 3 ML PEN SC SCH ×2 (08:29→11:25)
[2020-05-05 08:54] LABS: Potassium 3.5 mmol/L (3.5-5.1)
[2020-05-05] MEDS ORDERED: lisinopril 20 MG TAB PO SCH (09:00)
--- NOTE | 2020-05-05 10:34 | Discharge Summary ---
Date of Service May 05, 2020 Admission HPI Per Admitting Provider This is a 59-year-old male with limited PMHx including morbid obesity with BMI of 48.6, new onset DM type II, and hypertension. He has not seen a doctor in years until yesterday when he presented to Dr. Butcher office in [place], and saw the POO[facility] to establish care. He recently moved here from [place] with his . The patient presented due to worsening shortness of breath, swelling in legs and initial work-up was started which included CMP, BMP, TSH, ESR, CRP Lyme's testing (due to recent bite on his leg), A1c, EKG, and an echo was ordered after finding increased tachycardia and proBNP. He was referred to the ER for decompensated heart failure however the patient refused yesterday. He presented today as he did not feel any better, and because his brought him. Reports worsening ASHLEY x 1 month, and is only able to go about 10 feet before getting short of breath and needing to stop and rest. Reports his abdomen feels tight with fluid, denies abdominal pain, nausea, vomiting, diarrhea or c onstipation. Leg swelling has become more prominent recently, equal in both legs, and reports sometimes goes 1 week without wearing shoes at all. He also occasionally has a dry cough. Denies chest pain or palpitations. he does not know his weight, but reports going up a pant size within the past year, estimating that he has gained about 10 pounds. Reports his diet has been better than it ever has been as they are cooking everything at home, and not eating lots of junk food. Social Hx: Drinks alcohol socially, 2-3 drinks 2 times per month, occasional cigar, and denies other illicit drug use. He does not exercise at all, and ediwn been working from home and some days does not need to even leave his house. Lives at home with his and pet dogs. Family history: Father: at age 91, CAD, HTN, CHF Mother: at age 92, Alzheimer's Brothers x 3 : Alive and well, possible cardiac disease, limited information available Admission Exam Per Admitting Provider General: awake, alert, no apparent distress, morbid obesity, BMI 48.6 Head: Normocephalic, atraumatic ENT: PERRL, EOMI, no pharyngeal exudate, mucous membranes moist Chest: Clear to auscultation in upper lopez bilaterally, diminished breath sounds at bases bilaterally, on room air, no adventitious breath sounds Cardiac: Regular rate and rhythm, no murmur, +JVD, normal peripheral pulses, good capillary refill Abdominal: NABS x 4 quadrants, +tense, +distended, nontender to palpation, no rebound or guarding Extremities: +BLE edema 2+ pitting, +blanching erythema up to knee bilaterally, no open lesions or abrasions, calfs nontender to palpation Psych: Normal mood and affect Neuro: AAO x 3, strength intact bilaterally and rated 5/5, no motor deficits, speech is clear, no peripheral sensory deficits Principal Diagnosis Acute systolic heart failure Chronic MR Cellulitis of right lower extremity HTN New onset DMII Nocturnal hypoxia Discharge Exam CONSTITUTIONAL: obese, vitals as above, generally well-appearing EYES: normal conjunctivae, no scleral icterus ENT: external ear and nose normal, MMM RESPIRATORY: clear to auscultation bilaterally, no crackles, rales or wheezes, normal respiratory effort, breath sounds are diminished bilaterally. No conversational dyspnea. CARDIOVASCULAR: regular rate and rhythm, S1 and 2 heard without murmurs, gallops or rubs, heart sounds are distant, no JVD, trace edema bilateral lower e xtremities. GASTROINTESTINAL: soft, protuberant, nontender MUSCULOSKELETAL: strength 5/5 throughout, head is normocephalic and atraumatic SKIN: warm and dry NEUROLOGIC: CN 2-12 grossly intact, no sensory deficit, normal cognition, normal speech, no gross focal deficits. PSYCHIATRIC: alert cooperative and oriented to person, place and time. Discharge Data Allergies Allergy/AdvReac Type Severity Reaction Status Date / Time No Known Allergies Allergy Unverified 05/01/20 12:47 Consultations 05/01/20 15:19 ED Decision to Admit Stat 05/01/20 17:19 Consult Cardiology Routine Ordered Studies 05/01/20 12:16 CT abd pelvis IV con only Stat 05/01/20 12:28 CT angio chest PE protocol Stat Hospital Course (1) Acute systolic heart failure due to valvular disease: (2) Mitral regurgitation: (3) Cellulitis of right lower extremity: (4) HTN (hypertension): (5) New onset type 2 diabetes mellitus: (6) Morbid obesity with BMI of 45.0-49.9, adult: (7) Nocturnal hypoxia: The patient is a 59-year-old man who was not well followed by a physician prior to admission who presented with worsening dyspnea on exertion. He is morbidly obese and reported some weight gain. On arrival his BNP was elevated to 2163. He also had an elevated D-dimer and a CT of the chest was performed with contrast which was negative for acute PE. This imaging did reveal evidence of pulmonary edema as well as bilateral pleural effusions and a small volume of abdominal ascites. He was started on intravenous furosemide with good response. Cardiology was consulted and performed a 2D echo. This revealed an ejection fraction of 45 to 50% with a moderate mitral regurgitation and a dilated left ventricle. This was consistent with chronic MR. After a couple of days of diuresis continued weight loss and improvement in symptoms he was started on metoprolol XL and lisinopril. He was discharged on oral furosemide with close primary care follow-up recommended. Of note he is high risk for obstructive sleep apnea and a polysomnogram as outpatient is highly recommended. In addition to this, an overnight pulse oximetry was performed while in the hospital and was positive. The patient was found to need 4 L nasal cannula of oxygen at night while sleeping. This was ordered and sent to his house prior to discharge. At time of discharge he was mentating and ambulating at baseline and tolerating p.o. Symptoms had greatly improved since admission and he was oxygenating well on room air. He was hemodynamically stable and afebrile and sent home in stable condition. Close primary care follow-up was recommended as well as cardiology follow-up. Patient was given good heart failure discharge instructions regarding tracking of daily weights and when to call for issues. Total Time Total Time Spent Total Time Spent (In Minutes): 60 Total Time Includes: Examination of the Patient, Discharge Planning, Medication Reconciliation and Communication With Other Providers Discharge Plan Discharge Items Patient Disposition: Home - Self-Care Reason For Visit: SOB, EDEMA, CHF Discharge Diagnosis: Acute systolic heart failure Chronic MR Cellulitis of right lower extremity HTN New onset DMII Nocturnal hypoxia Activity: Resume your previous activity Non-emergency contact: Primary Care Provider Call non-emergency contact if: you have any medication questions and your symptoms worsen Follow-up/Referrals: Seferino Quinonez MD [Primary Care Provider] - (Date & Time 05/09/2020 11:20 AM Provider Seferino Quinonez MD Department [facility] ) Diet: Low Sodium (2gm) Addtl Attending Provider Instructions: Please take all medications as instructed on discharge list below. As a result of the new medications, non-fasting bloodwork is recommended in 1-2 weeks. This may be ordered by your primary care physician (PCP) on followup. Please followup with [facility] Cardiology as instructed. If you don't have a follow-up in place already, someone will be reaching out to your from the [facility] office to set up something. Please follow-up with your PCP at the date and time above. This visit is important to establish care, ensure you are tolerating the new medications, and discuss your new diagnoses including diabetes and heart failure. It was a pleasure taking care of you! Please call if you have any questions or problems. You can reach a [facility] hospitalist on duty at [facility] 24 hours a day by calling [phone]. Take care of yourself. Jewell Giraldo DO [facility] Addtl Certified Indoor Environmentalist Provider Instructions: Call 911 and go to the Emergency Room if: * You have tightness or pain in your chest that does not go away with rest or Nitroglycerin * You are very short of breath even with rest Call your doctor if any of the following symptoms or problems start or get worse: * Shortness of breath or difficulty breathing * Wake up at night short of breath * Chest pain * Cough * Swelling of your hands, fee, or legs * More fatigued or tired with your normal activity * Palpitations - sudden fast heart beats WEIGHT * Weigh yourself every morning after using the bathroom. * Use the same scale. * Wear the same amount of clothing. * Write your weight down on your chart. * Call your doctor if you gain more than 2-3 pounds in 1-2 days. MEDICATIONS * Use this discharge instruction sheet for instructions. * Take your medications at the time your doctor ordered. * Do not skip a dose of your medicines. * If you miss a dose of medicine, take as soon as possible, but DO NOT DOUBLE A DOSE. * Read your medicine information when you get home. * Know all of the side effects of your medicine. * Call your doctor's office if you have any side effects. * Be sure all of your doctors know what medicine and herbs you take (including cold, flu, and herbal medicine). * Pain Medicine: If you do not get relief from your pain, please call your doctor for help. Take the following with you to your follow-up doctor appointments: * Weight Chart * Medication List * List of questions Do not drink excessive alcohol, beer or wine. Pending Studies at Discharge: No Stand-Alone Forms: My [facility] Medications and DC Order Prescriptions: New lisinopril 20 mg Tablet 20 mg PO QAM Qty: 30 RF: 0 metoprolol succinate 25 mg Tablet Extended Release 24 Hr 25 mg PO QAM Qty: 30 RF: 0 furosemide 40 mg Tablet 40 mg PO BID17 Qty: 60 RF: 0 potassium chloride 20 mEq tablet extended release 20 meq PO DAILY Qty: 30 RF: 0 cephalexin 500 mg capsule 500 mg PO Q6H Qty: 20 RF: 0 Continued One-A-Day Men's 50 Plus 400-20-370 mcg Tablet 1 tab PO QAM RF: 0 Discharge Orders: Discharge Order (Routine); Ordered 05/05/20 Ordered By: Jewell Giraldo Admission Data Admit Date/Time: 05/01/20 16:12 Attending Provider: Jewell Giraldo Admit Provider: Jewell Giraldo Primary Care Provider: Seferino Quinonez Other Providers: Jewell Giraldo ; Max Guadalupe Other Interventions: Discharge Summary Assessment (RN) Last Done: 05/05/20 11:17
--- NOTE | 2020-05-05 12:50 | Cardiology Progress Note ---
Date of Service May 05, 2020 Assessment & Plan (1) Cellulitis of right lower extremity: Per medicine being covered by antibiotics (2) CHF (congestive heart failure): The patient still has some lower extremity edema but I do not believe it should hold up his discharge. I stopped the IV Lasix. He should go home on Lasix 40 mg p.o. twice daily. I have already arranged through our office for him to have follow-up. (3) New onset type 2 diabetes mellitus: Treated by medicine and covered with insulin. (4) Morbid obesity with BMI of 45.0-49.9, adult: Suggested weight loss the patient as his weight is his most important health risk. (5) Sleep apnea: The nocturnal oximetry indicates that he desaturates and he most likely has no OSB. He will need oxygen at night until he has further sleep evaluation completed as an outpatient. Admission and Anticipated Discharge Date Admission Date: May 01, 2020 Subjective The patient had another uneventful night. Heart rhythm has been stable. Review of Systems Review of Systems: All systems reviewed & are unremarkable except as noted in Subjective Physical Exam Physical Exam: General: no acute distress and stated age Head: normocephalic, no masses, lesions, tenderness or abnormalities Eyes: conjunctiva are pink and non-injected, sclera clear Neck: supple, no adenopathy, no bruits, normal jugular venous pulse, no hepatojugular reflux Chest: normal shape and normal respiratory effort Lungs: clear to auscultation and percussion Cardiac Exam: - regular rate & rhythm, no murmurs gallops or rubs - normal S1, normal S2 Pulses: 2(+) throughout Abdomen: abdomen soft, non-tender, no abnormal masses and no hepatosplenomegaly Musculoskeletal: no gait disturbance, no joint inflammation, no deforming arthritis Extremities: Edema of the lower extremities has improved. Neuro: grossly normal exam Results & Data ([facility]) Vital Signs (Past 12 Hours) Vital Signs Temp Pulse Pulse Pulse Resp BP BP 05/05/20 11:21 36.5 C 87 18 124/81 05/05/20 11:17 36.5 C 85 85 18 129/85 115/80 05/05/20 08:00 91 H 05/05/20 07:38 36.5 C 85 18 129/85 05/05/20 03:55 36.3 C L 85 20 114/79 Pulse Ox Pulse Ox 05/05/20 11:21 92 05/05/20 11:17 93 05/05/20 08:00 94 05/05/20 07:38 93 05/05/20 03:55 94 Laboratory Results Laboratory Results - last 24 hr 05/04/20 05/04/20 05/05/20 16:34 20:40 06:44 WBC 5.92 RBC 5.22 Hgb 14.1 Hct 45.2 MCV 86.6 MCH 27.0 MCHC 31.2 L RDW Std Deviation 48.6 H RDW Coeff of Abhijit 15.3 H Plt Count 188 MPV 10.7 H Sodium Potassium Chloride Carbon Dioxide Anion Gap BUN Creatinine Est Cr Clr Drug Dosing Est GFR ( Amer) Est GFR (Non-Af Amer) BUN/Creatinine Ratio Glucose POC Glucose 88 92 Calcium Phosphorus Magnesium 05/05/20 05/05/20 05/05/20 06:44 07:04 08:07 WBC RBC Hgb Hct MCV MCH MCHC RDW Std Deviation RDW Coeff of Abhijit Plt Count MPV Sodium 140 Potassium 3.5 Chloride 101 Carbon Dioxide 35 H Anion Gap 4.0 BUN 25 H Creatinine 1.20 Est Cr Clr Drug Dosing 107.9 Est GFR ( Amer) 76.8 Est GFR (Non-Af Amer) 66.3 BUN/Creatinine Ratio 21.0 H Glucose 95 POC Glucose 92 Calcium 8.5 Phosphorus 4.0 Magnesium 2.0 05/05/20 11:07 WBC RBC Hgb Hct MCV MCH MCHC RDW Std Deviation RDW Coeff of Abhijit Plt Count MPV Sodium Potassium Chloride Carbon Dioxide Anion Gap BUN Creatinine Est Cr Clr Drug Dosing Est GFR ( Amer) Est GFR (Non-Af Amer) BUN/Creatinine Ratio Glucose POC Glucose 124 H Calcium Phosphorus Magnesium Medications Administered Current Inpatient Medications Acetaminophen (Acetaminophen 325 Mg Tab) 650 mg PO Q4H PRN PRN Reason: Moderate Pain Stop: 05/31/20 17:18 Last Admin: 05/02/20 19:52 Dose: 650 mg Documented by: Dextrose (Dextrose 50% 50 Ml Syringe) 25 - 50 ml IV UD PRN; Protocol PRN Reason: Hypoglycemia Protocol Stop: 05/31/20 17:18 Furosemide (Furosemide 40 Mg Tab) 40 mg PO BID17 [facility] Stop: 06/04/20 16:59 Glucagon (Glucagon For Inj 1 Mg Vial) 1 mg SQ UD PRN; Protocol PRN Reason: Hypoglycemia Protocol Stop: 05/31/20 17:18 Glucose (Glucose 10 Tabs/Tube) 4 - 8 tabs PO UD PRN; Protocol PRN Reason: Hypoglycemia Protocol Stop: 05/31/20 17:18 Glucose (Glucose 40% Gel 15 Gm Tube) 15 - 30 gm PO UD PRN; Protocol PRN Reason: Hypoglycemia Protocol Stop: 05/31/20 17:18 Heparin Sodium (Porcine) (Heparin Sod 5,000 Unit/0.5 Ml Vial) 5,000 units SQ Q8 [facility] Stop: 05/31/20 19:14 Last Admin: 05/05/20 06:13 Dose: 5,000 units Documented by: Cefazolin Sodium (Ancef 2000mg) 2,000 mg in 15 mls @ 3.75 mls/min IV Q8H [facility] Stop: 05/08/20 20:59 Last Admin: 05/05/20 06:13 Dose: 3.75 mls/min Documented by: Insulin Aspart (Insulin Aspart 100 Units/Ml 3 Ml Pen) 0 units SC ACHS [facility] Stop: 05/31/20 17:18 Last Admin: 05/05/20 11:25 Dose: Not Given Documented by: Lisinopril (Lisinopril 20 Mg Tab) 20 mg PO [facility] Stop: 06/04/20 08:59 Last Admin: 05/05/20 08:20 Dose: 20 mg Documented by: Metoprolol Succinate (Metoprolol Succ 25mg Ext Rel Tab) 25 mg PO [facility] Stop: 06/03/20 08:59 Last Admin: 05/05/20 08:20 Dose: 25 mg Documented by: Miscellaneous (Carbohydrates For Hypoglycemia ) 15 - 30 gm PO UD PRN PRN Reason: Hypoglycemia Protocol Stop: 05/31/20 17:18 Multivitamins/Minerals (Cerovite Adv Formula Tab) 1 tab PO [facility] Stop: 06/01/20 08:59 Last Admin: 05/05/20 08:19 Dose: 1 tab Documented by: Ondansetron HCl (Ondansetron Inj 2 Mg/Ml 2 Ml Vial) 4 mg IV Q4H PRN PRN Reason: Nausea And Vomiting Stop: 05/31/20 17:18
[2020-05-05] MEDS ORDERED: FUROSEMIDE 40 MG TAB PO SCH (17:00)
== END 2020-05-05 14:41 | disposition home or self-care (01) | DRG 291 ==
LOC: ED 11:36 → INTOOBSV 16:12 → 2S 16:12